=== PATIENT | female | born 1935 | race Caucasian/White ===

== ENCOUNTER 2018-08-14 09:15 | Outpatient (CLI) | payer MEDICARE, MEDICAID ==
[2018-08-10 13:11] LABS: HEMATOCRIT 43.2 % (36-48); HEMOGLOBIN 14.1 g/dL (12.0-16.0); MEAN CORPUSCULAR HEMOGLOBIN 31 pg (27-31); MEAN CORPUSCULAR HGB CONC 33 % (32-36); MEAN CORPUSCULAR VOLUME 94 fL (79.0-98.0); PLATELET COUNT (AUTO) 198 K/uL (130-430); RED CELL DISTRIBUTION WIDTH 12.8 % (9.0-15.0); WHITE BLOOD COUNT (AUTO) 6.2 K/uL (4.8-10.8)
[2018-08-10 13:21] LABS: BILIRUBIN,URINE NEGATIVE (NEGATIVE); CLARITY/URINE SL HAZY (CLEAR); COLOR,URINE YELLOW (YELLOW); GLUCOSE,URINE NEGATIVE (NEGATIVE); KETONES,URINE NEGATIVE (NEGATIVE); LEUKOCYTE ESTERASE ,URINE 3+ (NEGATIVE); NITRITE, URINE NEGATIVE (NEGATIVE); PH,URINE 6.5 (5.0-8.0); PROTEIN URINE NEGATIVE (NEGATIVE); UROBILINOGEN,URINE 0.2 (0.2-1.0)
[2018-08-10 13:24] LABS: BLOOD, URINE TRACE (NEGATIVE)
[2018-08-10 13:30] LABS: PROTHROMBIN TIME 10.6 SECS (9.5-12.5)
[2018-08-10 13:37] LABS: ALANINE AMINOTRANSFERASE 23 U/L (12-78); ALBUMIN 3.3 g/dL (3.4-4.8); ANION GAP 6 (5-15); ASPARTATE AMINOTRANSFERASE 17 U/L (10-37); CALCIUM 10.2 mg/dL (8.4-11.0); CHLORIDE 102 mmol/L (98-107); CREATININE 0.54 mg/dL (0.55-1.30); GLUCOSE 93 mg/dL (70-99); POTASSIUM 4.3 mmol/L (3.5-5.1); SODIUM SERUM 135 mmol/L (136-145); TOTAL BILIRUBIN 0.9 mg/dL (0.0-1.0); UREA NITROGEN, BLOOD 13 mg/dL (8-21)
[2018-08-10 13:53] LABS: BAND % (MANUAL) 2 % (0-6); LYMPHOCYTES % (MANUAL) 38 % (20-46); MONOCYTES % (MANUAL) 9 % (0-11)
[2018-08-10 13:54] LABS: BASOPHILS % (MANUAL) 0 % (0-2); EOSINOPHILS % (MANUAL) 2 % (0-7)
[2018-08-10 14:01] LABS: BACTERIA,URINE MANY /HPF (None Seen); MUCUS,URINE None Seen /LPF (None Seen); WBC,URINE 50-80 /HPF (0-3); YEAST,URINE None Seen /HPF (None Seen)
[~2018-08-14 09:15] MED LIST: DICL50TA9 PO; FEXO60TA PO; ISOS10TA2 PO; LOSA1TAB9 PO; PRO40 PO; SYN50 PO
== END 2018-08-14 20:01 | disposition home or self-care (01) ==
LOC: SLB 09:15 → EDSTATUS 09:30 → SLB 20:01
PROVIDERS: ATTEND Specialist
DX: Z01.818 Encounter for other preprocedural examination (principal); R05 Cough; N83.209 Unspecified ovarian cyst, unspecified side; I10 Essential (primary) hypertension; Z79.899 Other long term (current) drug therapy; E03.9 Hypothyroidism, unspecified
CPT/HCPCS: 36415; 71045; 80053; 81000-TC; 85007; 85027; 85610-TC; 85730-TC; 87086; 87186-TC; 93005

== ENCOUNTER 2018-12-27 18:01 | Inpatient (IN) | payer MEDICAID, MEDICARE ==
[~2018-12-27] VITALS: Ht 152.4 cm; Wt 96.8 kg
[2018-12-27 18:21] VITALS: BP_SYST 131
--- NOTE | 2018-12-27 18:28 | NUR ---
Patient triaged and placed in waiting room. patient appears in no acute distress at this time. Accompanied by daughter, awaiting available bed, and MD notified of need for MSE.
--- NOTE | 2018-12-27 19:35 | NUR ---
Pt BIB daughter C/O fever x 2 days with chills, bodyaches, nausea and vomiting. Pt was brought in today by the daughter after symptoms were not relieved by Tylenol. Pt's was febrile and has been given Tylenol other vitals are stable, will continue to monitor.
--- NOTE | 2018-12-27 19:39 | NUR ---
Placed in room 1 . Placed on knocker off, blood pressure machine and pulse oximeter. To gown for exam. Side rails up. Report given to FERNANDO GALVAN.
--- NOTE | 2018-12-27 19:40 | NUR ---
ER Dr. Chong at bedside examining patient.
[2018-12-27] MEDS ORDERED: ONDANSETRON HCL 4 MG/2 ML VIAL IVP ONE (20:15)
[2018-12-27] MEDS ORDERED: NACL 0.9% 1,000 ML IV ONE (20:15)
[2018-12-27 20:48] LABS: ANION GAP 5 (5-15); CALCIUM 9.6 mg/dL (8.4-11.0); CHLORIDE 90 mmol/L (98-107); CREATININE 0.98 mg/dL (0.55-1.30); GLUCOSE 123 mg/dL (70-99); POTASSIUM 4.6 mmol/L (3.5-5.1); SODIUM SERUM 121 mmol/L (136-145); UREA NITROGEN, BLOOD 25 mg/dL (8-21)
--- NOTE | 2018-12-27 20:48 | NUR ---
Temp 102.1. Last tylenol given at 1300. Dr. Chong notified. Orders to be received.
[2018-12-27 20:49] LABS: BILIRUBIN,URINE NEGATIVE (NEGATIVE); BLOOD, URINE 2+ (NEGATIVE); CLARITY/URINE CLOUDY (CLEAR); COLOR,URINE YELLOW (YELLOW); GLUCOSE,URINE NEGATIVE (NEGATIVE); KETONES,URINE NEGATIVE (NEGATIVE); LEUKOCYTE ESTERASE ,URINE 2+ (NEGATIVE); NITRITE, URINE NEGATIVE (NEGATIVE); PROTEIN URINE 1+ (NEGATIVE); UROBILINOGEN,URINE 0.2 (0.2-1.0)
[2018-12-27 20:52] LABS: ALANINE AMINOTRANSFERASE 36 U/L (12-78); ALBUMIN 3.4 g/dL (3.4-4.8); ASPARTATE AMINOTRANSFERASE 49 U/L (10-37); BACTERIA,URINE FEW /HPF (None Seen); RBC,URINE 20-50 /HPF (0-3); TOTAL BILIRUBIN 1.8 mg/dL (0.0-1.0); WBC,URINE >100 /HPF (0-3)
[2018-12-27 20:53] LABS: MUCUS,URINE 1+ /LPF (None Seen)
[2018-12-27 20:54] LABS: HEMATOCRIT 42.9 % (36-48); HEMOGLOBIN 14.6 g/dL (12.0-16.0); MEAN CORPUSCULAR HEMOGLOBIN 31 pg (27-31); MEAN CORPUSCULAR HGB CONC 34 % (32-36); MEAN CORPUSCULAR VOLUME 91 fL (79.0-98.0); PLATELET COUNT (AUTO) 178 K/uL (130-430); RED BLOOD CELL COUNT(AUTO) 4.73 MIL/uL (4.2-6.2); RED CELL DISTRIBUTION WIDTH 13.9 % (9.0-15.0); WHITE BLOOD COUNT (AUTO) 17.3 K/uL (4.8-10.8)
[2018-12-27 20:55] LABS: BASOPHILS % (AUTO) 0.1 % (0.0-2.0); LYMPHOCYTES # (AUTO) 1.2 K/uL (1.0-5.5); MONOCYTES # (AUTO) 1.3 K/uL (0.0-1.0); MONOCYTES % (AUTO) 7.3 % (1.7-9.3); NEUTROPHILS # (AUTO) 14.8 K/uL (1.8-7.7); NEUTROPHILS % (AUTO) 85.6 % (40.0-70.0)
[2018-12-27 20:57] LABS: INR 1.1 (0.8-1.2); PROTHROMBIN TIME 11.3 SECS (9.5-12.5)
[2018-12-27] MEDS ORDERED: LEVOFLOXACIN 500 MG/D5W 100 ML IV ONE ×2 (21:00→23:57)
[2018-12-27] MEDS ORDERED: ACETAMINOPHEN 500 MG TABLET PO ONE ×2 (21:00→21:45)
[2018-12-27] MEDS ORDERED: ACETAMINOPHEN 500 MG TABLET ONE ×2 (21:05→21:44)
[2018-12-27] MEDS ORDERED: ENOXAPARIN SODIUM 100 MG/ML SYRINGE SUBCUT ONE (21:15)
--- NOTE | 2018-12-27 21:22 | NUR ---
Patient transported to radiology via gurney, accompanied by rad staff.
--- NOTE | 2018-12-27 21:32 | NUR ---
Pt returned from radiology in stable condition
--- NOTE | 2018-12-27 21:53 | NUR ---
Pt is resting quietly in bed, no acute distress noted.
[2018-12-27] MEDS ORDERED: HYDR-3698 PO (22:13)
[2018-12-27] MEDS ORDERED: OMEP20CA10 PO (22:13)
[2018-12-27] MEDS ORDERED: NITR1PAT76 TD (22:13)
--- NOTE | 2018-12-27 22:14 | NUR ---
Medication reconciliation completed with information provided by family. Any prior medication reconciliation on file was reviewed and corrected.
[2018-12-27] MEDS ORDERED: ASPIRIN 81 MG TAB.CHEW PO ONE (22:15)
[2018-12-27] MEDS ORDERED: ASPIRIN 81 MG TAB.CHEW ONE (22:16)
--- NOTE | 2018-12-27 22:32 | NUR ---
Patient will be admitted to care of Dr. Jacobs. Admitted to telemetry unit. Will go to room 135. Belongings list completed. Summary report printed. Report will be given at bedside.
--- NOTE | 2018-12-27 22:45 | NUR ---
Transfer to [facility] via ACLS protocol. Licensed nurse present. IV present no signs or symptoms of infiltration.
--- NOTE | 2018-12-27 22:49 | NUR ---
ADMISSION: The patient, KETURAH FRANCES, 83 y/o, F admitted by JOIE WHITTAKER MD,with the diagnosis of NSTEMI AND HYPONATREMIA , TO ROOM 135 , WILL TRANSFER TO ROOM 107 A AFTER COLLECTING DATA FOR ADMISSION .
[2018-12-27 22:55] VITALS: BP_SYST 121
--- NOTE | 2018-12-27 23:25 | NUR ---
OPENING NOTE RECEIVED ENDORSEMENT REPORT FROM ADMISSION NURSE FIONA AT BEDSIDE. PT RESTING IN BED COMFORTABLY. PT IS AOX4. FAMILY AT BEDSIDE. NO SOB NOTED. NO DISTRESS NOTED. NO S/S OF PAIN NOTED. PT DENIES PAIN AT THIS TIME. IV CLEAN DRY AND INTACT. IV SALINE LOCKED. NO NEEDS AT THIS TIME. PT ORIENTED TO HOSPITAL ROOM. PT INSTRUCTED HOW TO USE CALL LIGHT AND ROOM PHONE. PT VERBALIZED UNDERSTANDING. SAFETY MEASURES IN PLACE. CALL LIGHT/ROOM PHONE WITHIN REACH, BED WHEELS LOCKED, BED IN LOWEST POSITION, BED RAILS UP X 2, BED ALARM ON. NO OTHER NEEDS AT THIS TIME. WILL CONTINUE TO MONITOR PT AND CONTINUE POC.
[2018-12-27 23:30] VITALS: BP_SYST 121
[2018-12-27] MEDS ORDERED: ONDANSETRON HCL 4 MG/2 ML VIAL IVP PRN (23:45)
[2018-12-27] MEDS ORDERED: LORazepam 2 MG/ML VIAL IVP PRN (23:45)
[2018-12-28] VITALS (18 sets, daily range): BP systolic 88–179
[2018-12-28] MEDS ORDERED: LEVOFLOXACIN 500 MG/D5W 100 ML IV ONE (00:30)
[2018-12-28] MEDS: NACL 0.9% 1,000 ML IV SCH ×3 (00:38→16:52)
[2018-12-28] MEDS: HYDROcodone/ACETAMIN 10-325 MG TAB PO PRN (00:46)
--- NOTE | 2018-12-28 00:54 | NUR ---
MED PASS PT RESTING IN BED WITH EYES CLOSED. NO SOB NOTED. NO DISTRESS NOTED. NO S/S OF PAIN NOTED. DTR AT BEDSIDE. PT EASILY AWAKEN. SCHEDULED FLUIDS AND ANTIBIOTICS ADMINISTERED AT ORDERED RATE. IVF INFUSING WELL. PT REPORTS 10/10 KNEE PAIN PRN NORCO 10 ADMINISTERED ORDERED FOR SEVERE PAIN. PT TOLERATED WELL. NO OTHER NEEDS AT THIS TIME. SAFETY MEASURES IN PLACE. WILL CONTINUE TO MONITOR PT AND CONTINUE POC.
--- NOTE | 2018-12-28 02:34 | NUR ---
RN ROUNDS PT RESTING IN BED WITH EYES CLOSED. NO SOB NOTED. NO DISTRESS NOTED. NO S/S OF PAIN NOTED. NO NEEDS AT THIS TIME. SAFETY MEASURES IN PLACE. WILL CONTINUE TO MONITOR PT AND CONTINUE POC.
--- NOTE | 2018-12-28 04:55 | NUR ---
Consultation Paged Reason for consultation: Hyponatremia Was consult called: Y Person who was notified: Shelby Consulting Physician: Judie Gan (Dr. Mancini is correctional facility nurse) Nude Model Ordering Physician: Guillermo Rdz
--- NOTE | 2018-12-28 04:57 | NUR ---
Consultation Paged Reason for consultation: UTI Was consult called: Y Person who was notified: Shelby Consulting Physician: Dr. Rey (Dr. Quick is contracting engineer) Auditor Appraiser Ordering Physician: Guillermo Rdz
[2018-12-28] MEDS: LEVOTHYROXINE SODIUM 0.05 MG TABLET PO SCH (06:34)
--- NOTE | 2018-12-28 06:52 | NUR ---
CLOSING NOTE PT RESTING IN BED COMFORTABLY. PT IS AOX3. DTR AT BEDSIDE. NO SOB NOTED. NO DISTRESS NOTED. NO S/S OF PAIN NOTED. NO COMPLAINTS OF PAIN AT THIS TIME. PAIN MANAGED THROUGHOUT SHIFT. ALL SCHEDULED MEDICATIONS ADMINISTERED ORDERED. ALL NEEDS MET THROUGHOUT SHIFT. SAFETY MEASURES IN PLACE THROUGHOUT SHIFT. NO NEEDS AT THIS TIME. WILL CONTINUE TO MONITOR PT AND CONTINUE POC. WILL ENDORSE PT CARE TO DAY SHIFT NURSE RUDY AT BEDSIDE.
[2018-12-28 07:12] LABS: ANION GAP 7 (5-15); CALCIUM 8.6 mg/dL (8.4-11.0); CHLORIDE 94 mmol/L (98-107); CREATININE 0.94 mg/dL (0.55-1.30); GLUCOSE 98 mg/dL (70-99); POTASSIUM 4.6 mmol/L (3.5-5.1); SODIUM SERUM 125 mmol/L (136-145); UREA NITROGEN, BLOOD 20 mg/dL (8-21)
[2018-12-28 07:23] LABS: ALANINE AMINOTRANSFERASE 31 U/L (12-78); ALBUMIN 2.5 g/dL (3.4-4.8); ASPARTATE AMINOTRANSFERASE 38 U/L (10-37); TOTAL BILIRUBIN 1.4 mg/dL (0.0-1.0)
--- NOTE | 2018-12-28 07:27 | NUR ---
OPENING NOTE: MORNING REPORT WAS TAKEN FROM BENCH MOLDER NURSE AT BEDSIDE. DAUGHTER AT BEDSIDE. PATIENT LAYING IN BED WITH NO SIGNS OF DISTRESS. PATIENT ON ROOM AIR. IV FLUIDS INFUSING. BED ALARM IS ON AND CALL LIGHT IS IN REACH. BED IN LOWEST POSITION WITH SIDE RAILS UP. WILL CONTINUE TO MONITOR.
[2018-12-28 07:44] LABS: HEMATOCRIT 39.4 % (36-48); HEMOGLOBIN 13.4 g/dL (12.0-16.0); MEAN CORPUSCULAR VOLUME 91 fL (79.0-98.0); RED BLOOD CELL COUNT(AUTO) 4.32 MIL/uL (4.2-6.2); WHITE BLOOD COUNT (AUTO) 13.2 K/uL (4.8-10.8)
[2018-12-28 07:45] LABS: BASOPHILS % (AUTO) 0.3 % (0.0-2.0); EOSINOPHILS % (AUTO) 0.1 % (0.0-4.0); LYMPHOCYTES # (AUTO) 0.9 K/uL (1.0-5.5); LYMPHOCYTES % (AUTO) 6.6 % (20.5-51.5); MEAN CORPUSCULAR HEMOGLOBIN 31 pg (27-31); MEAN CORPUSCULAR HGB CONC 34 % (32-36); MONOCYTES # (AUTO) 0.8 K/uL (0.0-1.0); MONOCYTES % (AUTO) 5.7 % (1.7-9.3); NEUTROPHILS # (AUTO) 11.5 K/uL (1.8-7.7); NEUTROPHILS % (AUTO) 87.3 % (40.0-70.0); PLATELET COUNT (AUTO) 152 K/uL (130-430); RED CELL DISTRIBUTION WIDTH 13.3 % (9.0-15.0)
--- NOTE | 2018-12-28 07:50 | NUR ---
PATIENT LAYING IN BED. DAUGHTER AT BEDSIDE. PATIENT LOOKS LIKE SHE IS HAVING ABNORMAL BREATHING. WHEN ASKED IF SHE IS IN PAIN OR HAS SHORTNESS OF BREATH. PATIENT STATES NO. BREATH SOUNDS CLEAR. VITALS WERE TAKEN. BP LOW. WHEN TAKEN AGAIN WENT DOWN TO 90/31. WILL LET DR WHITTAKER KNOW.
--- NOTE | 2018-12-28 08:05 | NUR ---
MD: LET DR KNOW PATIENT'S VITALS AND LABS AND THAT PATIENT SEVERE SEPSIS RISK. SAID TO TRANSFER PATIENT TO ICU AND LET Megan WHITTAKER KNOW ABOUT TROPONIN.
--- NOTE | 2018-12-28 08:17 | NUR ---
SINGLE FOLD MACHINE OPERATOR, DR Aj WHITTAKER WAS CALLED RE: NOTIFY TRANSFER OF PATIENT TO ICU PER DR David WHITTAKER. SPOKE TO MORGAN.
--- NOTE | 2018-12-28 08:25 | NUR ---
PATIENT TO BE TRANSFERRED TO ICU. CHARGE NURSE WANTS TO WAIT UNTIL Aj WHITTAKER CALLS BACK TO SEE IF HE WANTS PATIENT TO BE TRANSFERRED TO ICU.
--- NOTE | 2018-12-28 08:55 | NUR ---
PATIENT GETTING ECHO AT BEDSIDE. PATIENT WILL BE TRANSFERRED TO ICU AFTER ECHO.
[2018-12-28] MEDS: LOSARTAN POTASSIUM 50 MG TABLET (COZAAR) PO SCH ×2 (09:00→12:11)
[2018-12-28] MEDS: NITROGLYCERIN 0.4 MG/HR PATCH.TD24 TD SCH (09:00)
[2018-12-28] MEDS ORDERED: HCTZ PO ONE (09:00)
[2018-12-28] MEDS ORDERED: LOSARTAN PO ONE (09:00)
[2018-12-28] MEDS: DICLOFENAC SODIUM 25 MG TABLET.DR PO SCH (09:00)
[2018-12-28] MEDS: HYDROCHLOROTHIAZIDE 12.5 MG CAPSULE (HCTZ) PO SCH ×2 (09:00→12:10)
[2018-12-28] MEDS: ISOSORBIDE DINITRATE 10 MG TABLET (ISORDIL) PO SCH ×2 (09:00→12:33)
[2018-12-28] MEDS: OMEPRAZOLE 20 MG CAPSULE.DR (PriLOSEC) PO SCH (09:00)
--- NOTE | 2018-12-28 09:30 | NUR ---
PATIENT TRANSFERRED TO ICU. REPORT WAS GIVEN AT BEDSIDE. Addendum: 12/28/18 at 0956 by Breann Mijares RN ALL BELONGINGS SENT WITH PATIENT, INCLUDING WHEELCHAIR.
--- NOTE | 2018-12-28 09:35 | NUR ---
Received pt from [facility] to ICU bed 8 with RN and ACLS protocol. SR on arrival. VSS. HOB up. Pts temp 100. Family at bedside. IV to left AC with NS infusing at 100 cc/hr. Room air 02 sat 96%. Lungs diminished bilaterally. C/O pain to right knee from prior arthroscopy. Pt is lao speaking. Skin warm and dry. Pt shivering and states she is cold. Will continue to monitor.
--- NOTE | 2018-12-28 09:35 | NUR ---
Received pt to ICU bed 8 from [facility] with RN at bedside. Pt alert,oriented and northern irish speaking. Pt denies pain and SOB. SR on monitor. Lungs diminished bilaterally. Room air 02 sats 95%. No edema noted. IV to left AC infusing at 100cc/hr on pump. Mild ankle swelling noted. Will continue to monitor.
--- NOTE | 2018-12-28 09:45 | NUR ---
Nutrition Update Ever Scale 15 noted. Pt admitted for NSTEMI and hyponatremia. Diet: cardiac BMI: 41 kg/m2 RD to follow per nutrition care standards.
--- NOTE | 2018-12-28 11:20 | NUR ---
ICU NURSE CALLED TO ASK TO PUT NON ADMINISTERED FOR MORNING MEDICATIONS. DID NOT HAVE TIME TO GIVE PATIENT MORNING MEDICATIONS PRIOR TO TRANSFER. ALSO SOME MEDICATIONS HELD BECAUSE OF DECREASED BLOOD PRESSURE.
[2018-12-28] MEDS: ACETAMINOPHEN 325 MG TABLET PO PRN ×2 (11:43→18:05)
--- NOTE | 2018-12-28 11:50 | NUR ---
Call out to Dr. Megan Jacobs regarding sepsis fluid replacement per Dr. Quick.
[2018-12-28] MEDS: PIPERACILLIN/TAZO 4.5GM/DEX-IS 100 ML IV SCH ×2 (12:15→21:07)
[2018-12-28] MEDS ORDERED: OMEPRAZOLE 20 MG CAPSULE.DR (PriLOSEC) PO ONE (13:30)
--- NOTE | 2018-12-28 13:32 | NUR ---
Second call out to Dr. Aj Jacobs for sepsis fluid management per Dr. Quick. SHe does not want to manage fluids due to heart problem.
[2018-12-28] MEDS ORDERED: NACL 0.9% 1,000 ML IV ONE (14:00)
--- NOTE | 2018-12-28 14:00 | NUR ---
Family requesting for pt to have 02 at 4L NC for sats 94%. 02 2L NC applied. Sats between 93-97% without 02. Will continue to monitor.
--- NOTE | 2018-12-28 14:30 | NUR ---
Dr. David Jacobs in to see pt. Orders left.
--- NOTE | 2018-12-28 14:45 | NUR ---
NS fluid challenge started on the pump. Pt has a left AC IV and pt bends her arm frequently making it hard for IV to infuse at times.
--- NOTE | 2018-12-28 16:01 | NUR ---
Call out to Dr. jA Jacobs regarding blood pressure. 89/38 NS bolus being given. Pt keeps bending her arm and IV site is left AC. Family at bedside.
--- NOTE | 2018-12-28 16:10 | NUR ---
Received return call from Dr. Jacobs regarding BP. Orders left for levophed if needed to keep MAP greater than 60.
[2018-12-28] MEDS ORDERED: NOREPINEPHRINE BITARTRATE 4 MG in D5W 246 ML IV PRN (16:15)
--- NOTE | 2018-12-28 16:40 | NUR ---
Consult called for Dr. Olsen. Spoke with her on the phone and questions answered. She will be in later.
--- NOTE | 2018-12-28 16:55 | NUR ---
Dietitian Recommendations *Recommend continuing Cardiac diet as appropriate. LP, RD Please refer to Nutrition Assessment for details.
--- NOTE | 2018-12-28 17:30 | NUR ---
Dr. Olsen in to see the pt. Orders left. She said to decrease the pts IVF because she doesn't want the pt to get too much fluid. IVF decreased to 100 cc/hr.
[2018-12-28] MEDS ORDERED: K PHOS 15 MM in NS 250 ML IV ONE (18:15)
--- NOTE | 2018-12-28 18:30 | NUR ---
Dr. Montana in to see pt. Orders left. If after albumin and lasix, pts urine output over the next 3 hours remains less than 100cc please start dopamine at 2mcgs.
--- NOTE | 2018-12-28 19:25 | NUR ---
Report given to Lynnette to assume care.
[2018-12-28] MEDS ORDERED: ALBUMIN HUMAN 25% 100 ML IV ONE (19:30)
[2018-12-28] MEDS ORDERED: DOPamine PREMIX 250 ML IV PRN (19:30)
--- NOTE | 2018-12-28 19:30 | NUR ---
PM ASSESSMENT REPORT RECEIVED FROM GRAY GALVAN. PT RECEIVED IN BED WITH EYES OPEN, AAOX4, AND PRIMARILY MALTESE SPEAKING. VSS, NO S/S OF ACUTE DISTRESS NOTED. PT ON 2L NC. SR ON MONITOR. LAC 20G INFUSING NS @ 100 CC/HR. MCARTHUR CATH IN PLACE DRAINING YELLOW URINE TO GRAVITY. SCDs IN PLACE. HOB ELEVATED, BED IN LOWEST POSITION, CALL LIGHT IN REACH. WILL CONTINUE TO MONITOR PT. Addendum: 12/29/18 at 0007 by Lynnette Darden RN FAMILY IS AT BEDSIDE
--- NOTE | 2018-12-28 20:00 | NUR ---
IV PLACEMENT: # 20 gauge angiocath placed to L HAND. Use of asceptic technique. Opsite placed over site. Blood return noted. Flushed with 10 cc of normal saline. No evidence of infiltration noted. Patient tolerated WELL.
[2018-12-28] MEDS ORDERED: LEVOFLOXACIN 250 MG/D5W 50 ML IV SCH (21:00)
[2018-12-28] MEDS ORDERED: FUROSEMIDE 40 MG/4 ML VIAL IVP SCH (21:00)
--- NOTE | 2018-12-28 21:00 | NUR ---
DR. KENDRA RUBI MADE AWARE THAT POTASSIUM PHOSPHATE THAT WAS ORDERED IS NOT AVAILABLE, PHOSPHORUS LEVEL 2.0. PER OKAY TO WAIT UNTIL THE MORNING FOR PHARMACY TO ARRIVE TO ADMINISTER MEDICATION.
--- NOTE | 2018-12-28 21:30 | NUR ---
PAYROLL TAX SPECIALIST PT GIVEN 100 CC 25% ALBUMIN AND LASIX PER ORDERS. WILL CONTINUE TO MONITOR URINE OUTPUT AND RECHECK FOR URINE > 100 CC IN 3 HOURS.
[2018-12-28] MEDS ORDERED: COMMUNICATION ORDER XX ONE (22:15)
[2018-12-29] VITALS (20 sets, daily range): BP systolic 103–182
[2018-12-29] MEDS: ACETAMINOPHEN 325 MG TABLET PO PRN (02:50)
--- NOTE | 2018-12-29 02:50 | NUR ---
RN ROUNDS PT TEMPERATURE 100.8 AT THIS TIME. PT GIVEN TYLENOL PER ORDERS AND COOLING MEASURES PROVIDED.
[2018-12-29] MEDS: NACL 0.9% 1,000 ML IV SCH ×3 (03:44→21:10)
--- NOTE | 2018-12-29 04:00 | NUR ---
RN ROUNDS PT RESTING COMFORTABLY IN BED. FAMILY REMAINS AT BEDSIDE. PER FAMILY THEY WOULD LIKE TO HOLD CHG BATH FOR LATER IN THE MORNING. VSS, NO S/S OF ACUTE DISTRESS NOTED. BREATHING IS EVEN AND UNLABORED. WILL CONTINUE TO MONITOR PT.
[2018-12-29] MEDS: PIPERACILLIN/TAZO 4.5GM/DEX-IS 100 ML IV SCH ×3 (05:59→21:09)
[2018-12-29] MEDS: LEVOTHYROXINE SODIUM 0.05 MG TABLET PO SCH (06:02)
[2018-12-29] MEDS: OMEPRAZOLE 20 MG CAPSULE.DR (PriLOSEC) PO SCH (06:02)
[2018-12-29 07:03] LABS: HEMOGLOBIN 11.6 g/dL (12.0-16.0); MEAN CORPUSCULAR HEMOGLOBIN 32 pg (27-31); MEAN CORPUSCULAR HGB CONC 34 % (32-36); MEAN CORPUSCULAR VOLUME 92 fL (79.0-98.0); PLATELET COUNT (AUTO) 138 K/uL (130-430); RED BLOOD CELL COUNT(AUTO) 3.69 MIL/uL (4.2-6.2); RED CELL DISTRIBUTION WIDTH 13.5 % (9.0-15.0); WHITE BLOOD COUNT (AUTO) 8.5 K/uL (4.8-10.8)
[2018-12-29 07:04] LABS: BASOPHILS % (AUTO) 0.2 % (0.0-2.0); EOSINOPHILS % (AUTO) 0.1 % (0.0-4.0); LYMPHOCYTES % (AUTO) 9.3 % (20.5-51.5); MONOCYTES % (AUTO) 7.8 % (1.7-9.3); NEUTROPHILS # (AUTO) 7.1 K/uL (1.8-7.7); NEUTROPHILS % (AUTO) 82.6 % (40.0-70.0)
[2018-12-29 07:05] LABS: LYMPHOCYTES # (AUTO) 0.8 K/uL (1.0-5.5); MONOCYTES # (AUTO) 0.7 K/uL (0.0-1.0)
--- NOTE | 2018-12-29 07:06 | NUR ---
ENDORSEMENT BEDSIDE REPORT GIVEN TO MANDA GALVAN USING SBAR APPROACH.
[2018-12-29 07:07] LABS: ALANINE AMINOTRANSFERASE 23 U/L (12-78); ALBUMIN 2.3 g/dL (3.4-4.8); ANION GAP 7 (5-15); ASPARTATE AMINOTRANSFERASE 31 U/L (10-37); CALCIUM 8.2 mg/dL (8.4-11.0); CHLORIDE 93 mmol/L (98-107); CREATININE 0.88 mg/dL (0.55-1.30); GLUCOSE 134 mg/dL (70-99); POTASSIUM 3.6 mmol/L (3.5-5.1); SODIUM SERUM 121 mmol/L (136-145); TOTAL BILIRUBIN 0.7 mg/dL (0.0-1.0); UREA NITROGEN, BLOOD 16 mg/dL (8-21)
--- NOTE | 2018-12-29 08:00 | NUR ---
AAOX4, SPEAKS ESTONIAN. VSS, NO S/S OF ACUTE DISTRESS NOTED. ON 2L NC. SR ON MONITOR. LAC 20G , WITH NS INFUSING @ 100 CC/HR. MCARTHUR CATH IN PLACE DRAINING YELLOW URINE TO GRAVITY. SCDs IN PLACE. HOB ELEVATED. CALL LIGHT IN PLACE, BED LOCKED IN LOWEST POSITION. DAUGHTER AT BEDSIDE. WILL CONTINUE TO MONITOR.
[2018-12-29] MEDS: DICLOFENAC SODIUM 25 MG TABLET.DR PO SCH (08:16)
[2018-12-29 08:25] LABS: ERYTHROCYTE SEDIMENTATION RATE 44 MM/HR (0-20)
--- NOTE | 2018-12-29 10:07 | NUR ---
DR. GARDNER IS CALLED FOR CLARIFICATION OF ORDERS. HE ALSO STATES VOLTAREN MAY BE CONTINUED FOR THE TIME BEING.
--- NOTE | 2018-12-29 10:35 | NUR ---
Dr. Vidales called in. Situation is relayed to him, and he gave orders. will be carried out.
[2018-12-29] MEDS ORDERED: ENOXAPARIN SODIUM 60 MG/0.6 ML SYRINGE SUBCUT ONE (10:45)
[2018-12-29] MEDS ORDERED: ASPIRIN 81 MG TABLET(ECOTRIN) PO ONE (10:45)
[2018-12-29] MEDS ORDERED: CARVEDILOL 3.125 MG TABLET (COREG) PO ONE (10:45)
[2018-12-29] MEDS: ISOSORBIDE DINITRATE 10 MG TABLET (ISORDIL) PO SCH (12:13)
[2018-12-29] MEDS: NITROGLYCERIN 0.4 MG/HR PATCH.TD24 TD SCH (12:18)
--- NOTE | 2018-12-29 13:00 | NUR ---
Patient is resting at this time.
--- NOTE | 2018-12-29 14:13 | NUR ---
Patient is resting, no signs of distress noted.
--- NOTE | 2018-12-29 16:05 | NUR ---
Patient is assessed by Dr. Vidales and Dr. Jacobs. Patient can be transferred per both Dr.s . Will be carried out.
--- NOTE | 2018-12-29 17:40 | NUR ---
Patient is transferred. Care is delegated to Ni Escamilla RN.
--- NOTE | 2018-12-29 18:00 | NUR ---
Notes- received pt from ICU, Pt is awake, alert. speak Pashto . family at bedside. turned and repositioned. complain of generalized pain. On o2 2l, tolerated well. on 24 hour urine collection. pt has mercedes catheter. safety precaution observed. no distress noted. will monitor.
[2018-12-29] MEDS: HYDROcodone/ACETAMIN 5-325 MG TAB (NORCO/ VICODIN) PO PRN (18:17)
[2018-12-29] MEDS ORDERED: BISACODYL 5 MG TABLET.DR (DULCOLAX) PO ONE (18:30)
--- NOTE | 2018-12-29 18:52 | NUR ---
Notes- Resting in bed, family bedside. no acute distress noted. willl endorse
--- NOTE | 2018-12-29 19:30 | NUR ---
OPENING NOTE RECEIVED CARE OF PT. PT RESTING IN BED WITH FAMILY AT BEDSIDE. PT AAOX4, NO S/S OF ACUTE DISTRESS, BREATHING IS UNLABORED TO ROOM AIR. IVF ARE INFUSING AT ORDERED RATE, NO SIGN OF INFILTRATION AT IV SITE. PT ENCOURAGED TO CALL FOR ASSISTANCE. SAFETY PRECAUTIONS IN PLACE: BED LOCKED IN LOWEST POSITION, SIDE RAILS UPX3, CALL LIGHT WITH PT, BED ALARM ON, CLOSE TO NURSES STATION. WILL MONITOR. Addendum: 12/29/18 at 2346 by Emily Jackson RN AMEND: BREATHING IS UNLABORED TO OXYGEN AT 2 L VIA NASAL CANNULA
[2018-12-29] MEDS: ENOXAPARIN SODIUM 60 MG/0.6 ML SYRINGE SUBCUT SCH (20:32)
--- NOTE | 2018-12-29 20:32 | NUR ---
SCHEDULED LOVENOX PT GIVEN SCHEDULED LOVENOX. MEDICATION AND POTENTIAL SIDE EFFECTS EXPLAINED. PT VERBALIZED UNDERSTANDING. PT RESTING IN BED WITH FAMILY AT BEDSIDE, NO S/S OF ACUTE DISTRESS AT THIS TIME. PT ENCOURAGED TO CALL FOR ASSISTANCE. SAFETY MAINTAINED. WILL MONITOR.
--- NOTE | 2018-12-29 21:09 | NUR ---
SCHEDULED ZOSYN PT GIVEN SCHEDULED ZOSYN. MEDICATIONS AND POTENTIAL SIDE EFFECTS EXPLAINED. PT VERBALIZED UNDERSTANDING. SAFETY MAINTAINED. WILL MONITOR.
--- NOTE | 2018-12-29 23:05 | NUR ---
REPOSITIONED PT REPOSITIONED FOR COMFORT PER REQUEST. IVF ARE INFUSING ORDERED, NO INFILTRATION AT IV SITE. NO S/S OF ACUTE DISTRESS NOTED. BREATHING IS UNLABORED TO O2 AT 2L VIA NC. SAFETY MAINTAINED. WILL MONITOR.
--- NOTE | 2018-12-30 01:30 | NUR ---
BEDPAN PT ASSISTED TO USE BEDPAN, WAS UNABLE TO HAVE A BOWEL MOVEMENT. EDUCATED PT REGARDING SCHEDULED DULCOLAX IN THE MORNING. PT VERBALIZED UNDERSTANDING. PT REPOSITIONED IN BED FOR COMFORT. PT ENCOURAGED TO CALL FOR ASSISTANCE. SAFETY MAINTAINED. WILL MONITOR.
[2018-12-30 02:28] VITALS: BP_SYST 127
--- NOTE | 2018-12-30 03:07 | NUR ---
SLEEPING PT SLEEPING IN BED WITH FAMILY AT BEDSIDE, PT APPEARS COMFORTABLE, WITH NO S/S OF ACUTE DISTRESS. VISIBLE RISE AND FALL OF CHEST TO OXYGEN AT 2 L VIA NASAL CANNULA. BREATHING IS UNLABORED. IVF ARE INFUSING AT ORDERED RATE. SAFETY PRECAUTIONS IN PLACE: BED LOCKED IN LOWEST POSITION, CALL LIGHT WITH PT, SIDE RAILS UP X3, BED ALARM ON, CLOSE TO NURSES STATION, PERSONAL ITEMS WITHIN REACH. WILL MONITOR.
[2018-12-30] MEDS: PIPERACILLIN/TAZO 4.5GM/DEX-IS 100 ML IV SCH ×3 (05:00→21:15)
--- NOTE | 2018-12-30 05:05 | NUR ---
SCHEDULED ZOSYN SCHEDULED ZOSYN ADMINISTERED TO PT. MEDICATIONS AND POTENTIAL SIDE EFFECTS EXPLAINED. PT VERBALIZED UNDERSTANDING. PT RESTING COMFORTABLY IN BED WITH FAMILY AT BEDSIDE, BREATHING IS UNLABORED TO O2 AT 2L VIA NC. MCARTHUR CATHETER IS INTACT AND DRAINING TO GRAVITY. SAFETY MAINTAINED. WILL MONITOR.
--- NOTE | 2018-12-30 06:00 | NUR ---
SCHEDULED MED PASS MEDICATIONS AND POTENTIAL SIDE EFFECTS EXPLAINED. PT VERBALIZED UNDERSTANDING. SAFETY MAINTAINED. WILL MONITOR.
[2018-12-30] MEDS: OMEPRAZOLE 20 MG CAPSULE.DR (PriLOSEC) PO SCH (06:01)
[2018-12-30] MEDS: LEVOTHYROXINE SODIUM 0.05 MG TABLET PO SCH (06:01)
[2018-12-30] MEDS: NACL 0.9% 1,000 ML IV SCH (06:01)
[2018-12-30 07:20] LABS: ANION GAP 6 (5-15); CHLORIDE 97 mmol/L (98-107); CHOLESTEROL 97 mg/dL (<200); CREATININE 0.75 mg/dL (0.55-1.30); GLUCOSE 110 mg/dL (70-99); HDL CHOLESTEROL 23 mg/dL (>55); LDL CHOLESTEROL 47 mg/dL (<100); PHOSPHORUS 2.2 mg/dL (2.7-4.5); POTASSIUM 3.6 mmol/L (3.5-5.1); SODIUM SERUM 125 mmol/L (136-145); TRIGLYCERIDES 92 mg/dL (30-150); UREA NITROGEN, BLOOD 13 mg/dL (8-21)
[2018-12-30 07:45] LABS: HEMATOCRIT 34.2 % (36-48); HEMOGLOBIN 11.6 g/dL (12.0-16.0); MEAN CORPUSCULAR HEMOGLOBIN 31 pg (27-31); MEAN CORPUSCULAR HGB CONC 34 % (32-36); MEAN CORPUSCULAR VOLUME 91 fL (79.0-98.0); PLATELET COUNT (AUTO) 136 K/uL (130-430); RED BLOOD CELL COUNT(AUTO) 3.75 MIL/uL (4.2-6.2); RED CELL DISTRIBUTION WIDTH 13.8 % (9.0-15.0); WHITE BLOOD COUNT (AUTO) 6.3 K/uL (4.8-10.8)
[2018-12-30 07:46] LABS: BASOPHILS % (AUTO) 0.3 % (0.0-2.0); EOSINOPHILS # (AUTO) 0.1 K/uL (0.0-0.4); EOSINOPHILS % (AUTO) 2.2 % (0.0-4.0); LYMPHOCYTES # (AUTO) 0.8 K/uL (1.0-5.5); LYMPHOCYTES % (AUTO) 12.9 % (20.5-51.5); MONOCYTES # (AUTO) 0.7 K/uL (0.0-1.0); MONOCYTES % (AUTO) 10.3 % (1.7-9.3); NEUTROPHILS # (AUTO) 4.7 K/uL (1.8-7.7); NEUTROPHILS % (AUTO) 74.3 % (40.0-70.0)
[2018-12-30 08:16] LABS: C-REACTIVE PROTEIN QUANT 12.6 mg/dL (0-0.5)
[2018-12-30] MEDS: DICLOFENAC SODIUM 25 MG TABLET.DR PO SCH (08:30)
--- NOTE | 2018-12-30 08:30 | NUR ---
SCHEDULED MED PASS PT RESTING WITH FAMILY AT BEDSIDE. SCHEDULED MEDICATIONS ADMINISTERED. MEDICATIONS EXPLAINED TO PT. PT VERBALIZED UNDERSTANDING. SAFETY MAINTAINED. WILL MONITOR.
[2018-12-30] MEDS: CARVEDILOL 3.125 MG TABLET (COREG) PO SCH (08:31)
[2018-12-30] MEDS: BISACODYL 5 MG TABLET.DR (DULCOLAX) PO SCH (08:31)
[2018-12-30] MEDS: ASPIRIN 81 MG TABLET(ECOTRIN) PO SCH (08:31)
[2018-12-30] MEDS: ENOXAPARIN SODIUM 60 MG/0.6 ML SYRINGE SUBCUT SCH ×2 (08:40→21:19)
[2018-12-30] MEDS: NITROGLYCERIN 0.4 MG/HR PATCH.TD24 TD SCH (08:41)
[2018-12-30 09:10] LABS: ERYTHROCYTE SEDIMENTATION RATE 53 MM/HR (0-20)
--- NOTE | 2018-12-30 10:30 | NUR ---
RN ROUNDS PT RESTING IN BED WITH FAMILY AT BEDSIDE. NO S/S OF DISTRESS. IVF INFUSING ORDERED. NO SIGN OF INFILTRATION. PT ENCOURAGED TO CALL FOR ASSISTANCE. SAFETY MAINTAINED. WILL MONITOR.
[2018-12-30 11:34] VITALS: BP_SYST 145
--- NOTE | 2018-12-30 11:55 | NUR ---
CLOSING NOTE PT RESTING IN BED WITH FAMILY AT BEDSIDE. BREATHING IS UNLABORED TO O2 AT 2L VIA NC. IVF INFUSING ORDERED. MCARTHUR CATHETER IS INTACT AND DRAINING TO GRAVITY. SAFETY MAINTAINED. ALL NEEDS MET DURING SHIFT. WILL ENDORSE CARE TO DAY SHIFT RN.
[2018-12-30] MEDS ORDERED: FUROSEMIDE 20 MG/2 ML VIAL IVP ONE (12:06)
--- NOTE | 2018-12-30 12:15 | NUR ---
Report received from Emily GALVAN, patient resting in bed, a/ox3-4, family is at bedside at this time, assessment complete, IV line is patent and infusing well, no s/s of infiltration, patient is on 2L Nasal Cannula, Arndt Catheter in place draining to gravity, educated patient and family on plan of care and call light system and to call for any assistance, they verbalized understanding, bed in lowest position, three side rails up, call light within reach, fall and aspiration precautions in place.
[2018-12-30] MEDS ORDERED: NA PHOS 15 MM in NS 250 ML IV ONE (12:30)
--- NOTE | 2018-12-30 12:50 | NUR ---
Medications patient resting in bed, awake, denies pain, educated patient and daughter on medication uses and potential side effects, they verbalized understanding, IV line is patent and infusing well, no other needs at this time, bed in lowest position, three side rails up, bed alarm on, call light within reach, fall and aspiration precautions in place.
[2018-12-30] MEDS: IPRATROPIUM/ALBUTEROL SULFATE 3 ML AMPUL.NEB (DUONEB) INH SCH ×2 (15:27→19:43)
--- NOTE | 2018-12-30 15:40 | NUR ---
Antibiotic late secondary to patient care, patient in stable condition, continuing to monitor.
[2018-12-30 15:41] VITALS: BP_SYST 127
--- NOTE | 2018-12-30 17:20 | NUR ---
RN rounds patient resting in bed, eyes closed, breathing is even and unlabored, no signs of distress, continuing to monitor, family at bedside, bed in lowest position, three side rails up, bed alarm on, bed close to nursing station, call light within reach.
--- NOTE | 2018-12-30 18:28 | NUR ---
Closing note patient resting in bed, eyes closed, breathing is even and unlabored, no signs of distress, all needs met, will endorse report to NOC shift nurse, patient family is at bedside, bed in lowest position, three side rails up, call light within reach, fall and aspiration precautions in place.
--- NOTE | 2018-12-30 19:10 | NUR ---
OPENING NOTES Bedside report received from dayshift nurse. Patient received lying in bed, HOB raised, nasal canula attached properly, on 2L of oxygen. No s/s of acute distress noted. Breathing even and unlabored. IVF infusing well, IV site shows no signs of infiltration or infection noted. Arndt attached, secured, and draining by gravity. Call light with patient. Bed alarm on. Bed is locked and at lowest position. Will continue to monitor.
[2018-12-30 20:00] VITALS: BP_SYST 136
--- NOTE | 2018-12-30 21:00 | NUR ---
ROUNDS/WEEN OFF NASAL CANULA Patient in bed, no signs of discomfort noted. Chest rise and fall even bilaterally. Nasal canula removed at this time. Patient tolerating well, SPO2 at 96 room air. Will continue to monitor. All needs met
[2018-12-30 22:53] LABS: URINE SODIUM, RANDOM 23 mmol/L (40-220)
--- NOTE | 2018-12-30 23:00 | NUR ---
ROUNDS Patient in bed sleeping at this time. No s/s of acute distress noted. Breathing even and unlabored. IVF infusing well. Arndt attached, secured, and draining by gravity. Call light with patient. Bed alarm on. Family members present at bedside. Will continue to monitor.
[2018-12-30 23:46] VITALS: BP_SYST 129
--- NOTE | 2018-12-31 01:00 | NUR ---
ROUNDS Patient in bed sleeping at this time. No signs of discomfort noted. Chest rise and fall even bilaterally. Call light with patient. IVF infusing well. Bed alarm on. Will continue to monitor.
--- NOTE | 2018-12-31 03:00 | NUR ---
PAIN Patient complained of pain at this time. Byron administered per PRN order. Will continue to monitor and reassess.
[2018-12-31] MEDS: HYDROcodone/ACETAMIN 5-325 MG TAB (NORCO/ VICODIN) PO PRN (03:10)
--- NOTE | 2018-12-31 05:00 | NUR ---
ROUNDS Patient in bed sleeping at this time. No signs of discomfort noted. Chest rise and fall even bilaterally. IVF infusing well. HOB raised, nasal canula attached properly, on 2L of oxygen. Call light with patient. Bed alarm on. Will continue to monitor.
[2018-12-31] MEDS: LEVOTHYROXINE SODIUM 0.05 MG TABLET PO SCH (06:01)
[2018-12-31] MEDS: OMEPRAZOLE 20 MG CAPSULE.DR (PriLOSEC) PO SCH (06:01)
[2018-12-31] MEDS: PIPERACILLIN/TAZO 4.5GM/DEX-IS 100 ML IV SCH (06:02)
--- NOTE | 2018-12-31 06:56 | NUR ---
CLOSING NOTES Patient in bed sleeping at this time. No s/s of acute distress noted. Breathing even and unlabored. Nasal canula attached properly, on 2L of oxygen, HOB raised. IVF infusing well, IV sites patent, no signs of infiltration or infection noted. Arndt attached, secured and draining by gravity. SCDs attached and operating. All needs met throughout shift. Fall and safety precautions maintained throughout shift. Will continue to monitor until patient care is endorsed to oncoming dayshift nurse.
[2018-12-31] MEDS: IPRATROPIUM/ALBUTEROL SULFATE 3 ML AMPUL.NEB (DUONEB) INH SCH ×3 (07:00→15:01)
--- NOTE | 2018-12-31 07:25 | NUR ---
Opening Note: Patient laying in bed resting, son and daughter at bedside. Patient denies pain and discomfort at this time. Breathing is even and unlabored on 2L nasal cannula. IV patent and intact running IVF per MD orders. No signs of infiltration noted. Arndt catheter patent and intact with visible urine output. Safety precautions in place; bed in lowest position, wheels locked, side rails x3 and call light within reach. No needs at this time. Will continue to monitor.
[2018-12-31 07:53] LABS: ANION GAP 7 (5-15); CALCIUM 8.2 mg/dL (8.4-11.0); CHLORIDE 100 mmol/L (98-107); CREATININE 0.68 mg/dL (0.55-1.30); GLUCOSE 106 mg/dL (70-99); PHOSPHORUS 2.6 mg/dL (2.7-4.5); POTASSIUM 3.6 mmol/L (3.5-5.1); SODIUM SERUM 130 mmol/L (136-145); UREA NITROGEN, BLOOD 12 mg/dL (8-21)
[2018-12-31 08:07] VITALS: BP_SYST 155
[2018-12-31] MEDS: NITROGLYCERIN 0.4 MG/HR PATCH.TD24 TD SCH (08:13)
[2018-12-31 08:14] LABS: BASOPHILS % (AUTO) 0.4 % (0.0-2.0); EOSINOPHILS % (AUTO) 2.2 % (0.0-4.0); HEMATOCRIT 34.3 % (36-48); HEMOGLOBIN 11.5 g/dL (12.0-16.0); LYMPHOCYTES # (AUTO) 1.3 K/uL (1.0-5.5); LYMPHOCYTES % (AUTO) 23.1 % (20.5-51.5); MEAN CORPUSCULAR HEMOGLOBIN 31 pg (27-31); MEAN CORPUSCULAR HGB CONC 34 % (32-36); MEAN CORPUSCULAR VOLUME 91 fL (79.0-98.0); MONOCYTES % (AUTO) 14.8 % (1.7-9.3); NEUTROPHILS # (AUTO) 3.4 K/uL (1.8-7.7); NEUTROPHILS % (AUTO) 59.5 % (40.0-70.0); PLATELET COUNT (AUTO) 159 K/uL (130-430); RED BLOOD CELL COUNT(AUTO) 3.77 MIL/uL (4.2-6.2); RED CELL DISTRIBUTION WIDTH 14.2 % (9.0-15.0); WHITE BLOOD COUNT (AUTO) 5.7 K/uL (4.8-10.8)
[2018-12-31] MEDS: CARVEDILOL 3.125 MG TABLET (COREG) PO SCH (08:14)
[2018-12-31] MEDS: DICLOFENAC SODIUM 25 MG TABLET.DR PO SCH (08:14)
[2018-12-31] MEDS: ASPIRIN 81 MG TABLET(ECOTRIN) PO SCH (08:14)
[2018-12-31 08:15] LABS: EOSINOPHILS # (AUTO) 0.1 K/uL (0.0-0.4); MONOCYTES # (AUTO) 0.9 K/uL (0.0-1.0)
[2018-12-31] MEDS: BISACODYL 5 MG TABLET.DR (DULCOLAX) PO SCH (08:16)
[2018-12-31] MEDS: ENOXAPARIN SODIUM 60 MG/0.6 ML SYRINGE SUBCUT SCH ×2 (08:17→22:10)
[2018-12-31] MEDS ORDERED: NA PHOS 15 MM in NS 250 ML IV ONE (09:00)
--- NOTE | 2018-12-31 10:05 | NUR ---
Rounds: Patient in bed resting, repositioned by family members. Will continue to monitor.
[2018-12-31 10:22] LABS: ERYTHROCYTE SEDIMENTATION RATE 60 MM/HR (0-20)
--- NOTE | 2018-12-31 11:29 | NUR ---
Pt Note Patient very sleepy today; unsafe to perform therapy today, RPT present, nursing and family members aware.
[2018-12-31 11:55] VITALS: BP_SYST 140
[2018-12-31] MEDS: cefTRIAXone 1 GM in D5W 50 ML IV SCH (12:14)
--- NOTE | 2018-12-31 12:14 | NUR ---
Rounds: Patient in bed resting. Family at bedside. Patient denies pain and discomfort. Breathing is even and unlabored with no distress noted. IVF infusing with no signs of infiltration. Morning medications tolerated well. Safety precautions in place and call light within reach.
--- NOTE | 2018-12-31 13:58 | NUR ---
Rounds: Patient in bed resting. Was helped up to BSC by family members and back to bed. Will continue to monitor.
--- NOTE | 2018-12-31 15:00 | NUR ---
RT NOTES BONNIE, PT SON, AT BEDSIDE AND REQUESTED TO ASSESS PT BREATH SOUND. AUSCULTATED LUNG SOUNDS WHILE PT RIGHT SIDE LAYING SLEEPING. NO WHEEZING/ CRACKLES HEARD AT THIS TIME. HR 67, SPO2 96% ON RA. SON STATED LAST NIGHT AFTER BREATHING TX, PT GOT RESTLESS AND KEPT MUMBLING WORDS BECOMING HALLUCINATED. HE SUSPECTED ITS DUE TO SIDE EFFECTS OF ALBUTEROL TX. BONNIE ASKED IF ABLE TO SWITCH WITH OTHER BREATHING TX. MANDY CORONEL MADE AWARE. NO TX GIVEN. WAIT FOR NEW ORDERS.
[2018-12-31 15:38] VITALS: BP_SYST 119
--- NOTE | 2018-12-31 15:38 | NUR ---
Quentin Olsen: Paging Dr. Olsen regarding family concerns. Family states that patient get confused and starts mumbling things when given breathing treatment (Iprat-Albut). Family requesting different medication be given during breathing treatment. Awaiting callback. Addendum: 12/31/18 at 1546 by Sugar Soto RN Spoke to Dr. Olsen. Orders received regarding breathing treatment. Orders to be entered by MANDY.
[2018-12-31] MEDS: NACL 0.9% 1,000 ML IV SCH (17:17)
[2018-12-31] MEDS: HYDROcodone/ACETAMIN 10-325 MG TAB PO PRN (18:25)
--- NOTE | 2018-12-31 18:59 | NUR ---
Closing Note: Patient laying in bed resting, family at bedside. Patient medicated for pain, will reassess. Breathing is even and unlabored on 2L nasal cannula. IV patent and intact running IVF per MD orders. No signs of infiltration noted. Arndt catheter patent and intact with visible urine output. Safety precautions in place; bed in lowest position, wheels locked, side rails x3 and call light within reach. All needs met. Will endorse plan of care to NOC, nurse.
--- NOTE | 2018-12-31 19:11 | NUR ---
Paged Guillermo Rdz s/w David
--- NOTE | 2018-12-31 19:15 | NUR ---
Dr. Jacobs called back and spoke with Sugar. Orders received.
--- NOTE | 2018-12-31 19:24 | NUR ---
OPENING NOTE Received report from Sugar. Patient resting in bed awake, alert, oriented x4. Breathing unlabored and even on 2L oxygen via NC. No signs of distress, no needs at this time. Fall, safety, aspiration precautions in place. Bed in lowest position, brake on, alarm on, call light within reach. Family at the bedside. IVF infusing as ordered. Will continue to monitor.
[2018-12-31] MEDS ORDERED: PHENAZOPYRIDINE HCL 100 MG TABLET PO ONE (19:30)
[2018-12-31] MEDS: LevALBUTEROL HCL 1.25 MG/0.5 ML *CONC.* VIAL.NEB (XOPENEX CONC.) INH SCH (19:45)
--- NOTE | 2018-12-31 19:45 | NUR ---
RT at the bedside administering breathing treatment
[2018-12-31] MEDS: BENZOCAINE/MENTHOL 1 EACH LOZENGE MM PRN (19:46)
--- NOTE | 2018-12-31 19:49 | NUR ---
Patient c/o sore throat. Administered PRN cepacol PO as ordered.
[2018-12-31 20:20] VITALS: BP_SYST 144
--- NOTE | 2018-12-31 20:38 | NUR ---
Med pass. Patient requesting to hold off on lovenoc for now. Will recheck with patient in a bit if patient will want lovenox
--- NOTE | 2018-12-31 22:11 | NUR ---
Administered scheduled lovenox SQ as ordered.
[2019-01-01 00:12] VITALS: BP_SYST 141
--- NOTE | 2019-01-01 00:39 | NUR ---
Patient resting in bed with eyes closed. Breathing unlabored and even on 2L oxygen via NC. No signs of distress, no needs at this time. Fall, safety, aspiration precautions in place. Bed in lowest position, brake on, alarm on, call light within reach. Family at the bedside. IVF infusing as ordered. Will continue to monitor.
[2019-01-01] MEDS: LevALBUTEROL HCL 1.25 MG/0.5 ML *CONC.* VIAL.NEB (XOPENEX CONC.) INH SCH ×4 (00:48→19:00)
[2019-01-01] MEDS: BENZOCAINE/MENTHOL 1 EACH LOZENGE MM PRN ×2 (01:23→16:47)
--- NOTE | 2019-01-01 01:24 | NUR ---
Administered PRN cepacol PO as ordered. Family at the bedside
[2019-01-01] MEDS: HYDROcodone/ACETAMIN 10-325 MG TAB PO PRN ×2 (04:33→16:48)
--- NOTE | 2019-01-01 04:51 | NUR ---
Patient c/o pain. Administered PRN norco 10 PO as ordered
[2019-01-01] MEDS: LEVOTHYROXINE SODIUM 0.05 MG TABLET PO SCH (06:33)
[2019-01-01] MEDS: OMEPRAZOLE 20 MG CAPSULE.DR (PriLOSEC) PO SCH (06:33)
[2019-01-01 06:46] LABS: HEMATOCRIT 35.4 % (36-48); HEMOGLOBIN 12.1 g/dL (12.0-16.0); MEAN CORPUSCULAR HEMOGLOBIN 31 pg (27-31); MEAN CORPUSCULAR VOLUME 91 fL (79.0-98.0); RED BLOOD CELL COUNT(AUTO) 3.91 MIL/uL (4.2-6.2); WHITE BLOOD COUNT (AUTO) 7.6 K/uL (4.8-10.8)
[2019-01-01 06:47] LABS: BASOPHILS % (AUTO) 0.4 % (0.0-2.0); EOSINOPHILS # (AUTO) 0.2 K/uL (0.0-0.4); EOSINOPHILS % (AUTO) 2.7 % (0.0-4.0); LYMPHOCYTES # (AUTO) 1.4 K/uL (1.0-5.5); LYMPHOCYTES % (AUTO) 17.9 % (20.5-51.5); MEAN CORPUSCULAR HGB CONC 34 % (32-36); MONOCYTES % (AUTO) 13.8 % (1.7-9.3); NEUTROPHILS # (AUTO) 4.9 K/uL (1.8-7.7); NEUTROPHILS % (AUTO) 65.2 % (40.0-70.0); PLATELET COUNT (AUTO) 195 K/uL (130-430); RED CELL DISTRIBUTION WIDTH 13.7 % (9.0-15.0)
[2019-01-01 06:57] LABS: ANION GAP 8 (5-15); C-REACTIVE PROTEIN QUANT 6.5 mg/dL (0-0.5); CALCIUM 8.3 mg/dL (8.4-11.0); CHLORIDE 98 mmol/L (98-107); CREATININE 0.58 mg/dL (0.55-1.30); GLUCOSE 104 mg/dL (70-99); POTASSIUM 3.5 mmol/L (3.5-5.1); SODIUM SERUM 130 mmol/L (136-145); UREA NITROGEN, BLOOD 8 mg/dL (8-21)
--- NOTE | 2019-01-01 07:00 | NUR ---
CLOSING NOTE Patient resting in bed with eyes closed. Breathing unlabored and even on 2L oxygen via NC. No signs of distress, no needs at this time. Fall, safety, aspiration precautions in place. Bed in lowest position, brake on, alarm on, call light within reach. Family at the bedside. IVF infusing as ordered. Will endorse cares to day shift nurse.
[2019-01-01 08:00] VITALS: BP_SYST 161
--- NOTE | 2019-01-01 08:00 | NUR ---
Note Pt resting in bed, pt's son at bedside at this time. No SOB/resp distress or pain/discomfort noted at this time. Pt on O2 at 2L/nc. IV on left AC and left hand at this time, which is patent and intact at this time. Breakfast tray on bedside table. No needs noted at this time. Call light within reach.
[2019-01-01 08:01] LABS: ERYTHROCYTE SEDIMENTATION RATE 69 MM/HR (0-20)
[2019-01-01] MEDS: PHENAZOPYRIDINE HCL 100 MG TABLET PO SCH ×3 (09:00→17:29)
[2019-01-01] MEDS: ASPIRIN 81 MG TABLET(ECOTRIN) PO SCH (09:01)
[2019-01-01] MEDS: CARVEDILOL 3.125 MG TABLET (COREG) PO SCH (09:01)
[2019-01-01] MEDS: DICLOFENAC SODIUM 25 MG TABLET.DR PO SCH (09:01)
[2019-01-01] MEDS: BISACODYL 5 MG TABLET.DR (DULCOLAX) PO SCH (09:01)
[2019-01-01] MEDS: NITROGLYCERIN 0.4 MG/HR PATCH.TD24 TD SCH (09:02)
[2019-01-01] MEDS: ENOXAPARIN SODIUM 60 MG/0.6 ML SYRINGE SUBCUT SCH ×2 (09:08→22:30)
[2019-01-01] MEDS ORDERED: FUROSEMIDE 20 MG/2 ML VIAL IVP ONE (09:30)
[2019-01-01] MEDS ORDERED: POTASSIUM CHLORIDE 20 MEQ TAB.PRT.SR PO ONE (09:30)
[2019-01-01 11:31] VITALS: BP_SYST 158
--- NOTE | 2019-01-01 12:00 | NUR ---
Note 0905 - Dr Olsen at bedside and evaluating pt at this time. O2 at 2L/nc verified by Dr Olsen. Pt's daughter and 2 other family members at bedside attending to pt's needs and care. 1115am - Dr Jeronimo at bedside evaluating pt and writing orders. Pt resting in bed. No needs noted at this time. Call light within reach.
[2019-01-01] MEDS: cefTRIAXone 1 GM in D5W 50 ML IV SCH (12:17)
--- NOTE | 2019-01-01 12:50 | NUR ---
Note Guillermo Medrano at bedside assessing pt and writing orders at this time. No needs noted. IVF's and IVPB antibiotics infusing well through left IV site. Call light within reach. No needs noted a this time.
--- NOTE | 2019-01-01 14:56 | NUR ---
Discharge Planning: DCP faxed patient referral to Shital parra [facility] (f [phone] p [phone]) DCP will follow up.
--- NOTE | 2019-01-01 16:00 | NUR ---
Note Pt was assisted maximum assist from bed to BSC by CNAs. Pt finished having bowel movement and now sitting up to eat her lunch. No needs noted at this time. No SOB/resp distress noted at this time. Call light within reach.
--- NOTE | 2019-01-01 16:39 | NUR ---
DC PLANNING Order for LTAC eval. Spoke w dtr Izabela @ bedside in [place], informed of order & explained LTAC. Gave dtr list of LTAC's & also pamphlet of [place] in [place] explaining LTAC. States would consider if family able to stay w pt @ night. States she has to discuss w her siblings & will let us know.
[2019-01-01 16:46] VITALS: BP_SYST 152
[2019-01-01] MEDS: NACL 0.9% 1,000 ML IV SCH (17:28)
--- NOTE | 2019-01-01 18:25 | NUR ---
Note Pt has had family at bedside to assist all shift. Tele unit attached and intact all shift. Arndt catheter intact and draining well all shift. Pt was checked on q1' and PRN all shift for needs and care. No SOB/resp distress or pain/discomfort noted at this time. IV in left forearm intact and patent infusing IVF's well. No needs noted at this time. Call light within reach.
[2019-01-01 19:00] VITALS: BP_SYST 125
[2019-01-02 00:16] VITALS: BP_SYST 139
[2019-01-02] MEDS: LevALBUTEROL HCL 1.25 MG/0.5 ML *CONC.* VIAL.NEB (XOPENEX CONC.) INH SCH ×4 (00:59→19:00)
[2019-01-02 06:07] LABS: ANION GAP 3 (5-15); C-REACTIVE PROTEIN QUANT 6.9 mg/dL (0-0.5); CALCIUM 8.4 mg/dL (8.4-11.0); CHLORIDE 100 mmol/L (98-107); CREATININE 0.54 mg/dL (0.55-1.30); GLUCOSE 91 mg/dL (70-99); SODIUM SERUM 130 mmol/L (136-145); UREA NITROGEN, BLOOD 9 mg/dL (8-21)
[2019-01-02 06:13] LABS: HEMATOCRIT 34.6 % (36-48); HEMOGLOBIN 11.7 g/dL (12.0-16.0); MEAN CORPUSCULAR VOLUME 91 fL (79.0-98.0); RED BLOOD CELL COUNT(AUTO) 3.81 MIL/uL (4.2-6.2); WHITE BLOOD COUNT (AUTO) 7.9 K/uL (4.8-10.8)
[2019-01-02 06:14] LABS: BASOPHILS % (AUTO) 0.4 % (0.0-2.0); EOSINOPHILS # (AUTO) 0.3 K/uL (0.0-0.4); EOSINOPHILS % (AUTO) 4.4 % (0.0-4.0); LYMPHOCYTES # (AUTO) 1.9 K/uL (1.0-5.5); LYMPHOCYTES % (AUTO) 23.9 % (20.5-51.5); MEAN CORPUSCULAR HEMOGLOBIN 31 pg (27-31); MEAN CORPUSCULAR HGB CONC 34 % (32-36); MONOCYTES # (AUTO) 0.9 K/uL (0.0-1.0); MONOCYTES % (AUTO) 11.4 % (1.7-9.3); NEUTROPHILS # (AUTO) 4.7 K/uL (1.8-7.7); NEUTROPHILS % (AUTO) 59.9 % (40.0-70.0); PLATELET COUNT (AUTO) 213 K/uL (130-430); RED CELL DISTRIBUTION WIDTH 14.2 % (9.0-15.0)
[2019-01-02] MEDS: PHENAZOPYRIDINE HCL 100 MG TABLET PO SCH ×3 (08:30→17:41)
[2019-01-02 08:45] LABS: ERYTHROCYTE SEDIMENTATION RATE 71 MM/HR (0-20)
[2019-01-02] MEDS: BISACODYL 5 MG TABLET.DR (DULCOLAX) PO SCH (09:00)
[2019-01-02] MEDS: DICLOFENAC SODIUM 25 MG TABLET.DR PO SCH (09:00)
[2019-01-02] MEDS: CARVEDILOL 3.125 MG TABLET (COREG) PO SCH (09:00)
[2019-01-02] MEDS: NITROGLYCERIN 0.4 MG/HR PATCH.TD24 TD SCH (09:00)
[2019-01-02] MEDS: ASPIRIN 81 MG TABLET(ECOTRIN) PO SCH (09:00)
[2019-01-02] MEDS: ENOXAPARIN SODIUM 60 MG/0.6 ML SYRINGE SUBCUT SCH ×2 (09:00→21:30)
[2019-01-02] MEDS ORDERED: POTASSIUM CHLORIDE 10 MEQ TAB.PRT.SR PO ONE (09:45)
[2019-01-02] MEDS ORDERED: FUROSEMIDE 20 MG/2 ML VIAL IVP ONE (09:45)
--- NOTE | 2019-01-02 10:00 | NUR ---
[facility] resumed Pt sat up in bed and ate her breakfast with assistance from her son. No SOB/resp distress or severe pain/discomfort was noted at this time. IV in left forearm intact and patent infusing IVF's well. Arndt catheter intact and draining well. Tele unit intact and attached. No needs noted at this time. Call light within reach.
[2019-01-02] MEDS: OMEPRAZOLE 20 MG CAPSULE.DR (PriLOSEC) PO SCH (10:10)
[2019-01-02] MEDS: LEVOTHYROXINE SODIUM 0.05 MG TABLET PO SCH (10:10)
[2019-01-02 11:00] VITALS: BP_SYST 139
[2019-01-02] MEDS: BENZOCAINE/MENTHOL 1 EACH LOZENGE MM PRN (11:00)
[2019-01-02 11:28] VITALS: BP_SYST 148
[2019-01-02] MEDS: cefTRIAXone 1 GM in D5W 50 ML IV SCH (11:55)
--- NOTE | 2019-01-02 13:24 | NUR ---
Nutrition F/U Admitting Diagnosis NSTEMI and Hyponatremia Reviewed Pertinent Medical/Surgical Hx Medical Record Patient Family Medical History Comment: PMH per ER MD report: Cardiac disorders (chest pain), cerebrovascular accidents (mini strokes), DM, HTN, gastroesophageal reflux, thyroid disease Updated per MD report 12/28/18: NSTEMI, hyponatremia, UTI, elevated Troponin 01/02/19 ID MD: septic shock-resolved, gram negative septisemia-E. Coli, acute pyelonephritis, obesity, VICKI Subjective Information Pt seen resting in bed w/ multiple family members at bedside. Pt has been eating fine, no c/o chewing/swallowing. Pt has had a bit of constipation. RD encouraged pt to try to increase PO intakes of fiber-rich foods and water. Current diet remains appropriate. Current Diet Order/Nutrition Support Cardiac x5 days Patient/Significant Other Able To Verbalize Education Provided Not Indicated Pertinent Medications Reviewed Pertinent Labs ALP 97 WNL (improved, 12/29/18), AST 31 WNL (improved 12/29/18), WBC 7.9 WNL (improved), TROP 1.219 H (12/29/18), Na 130 L, Phosphorous 2.6 L (12/31/18) Height (Feet) 5 feet Height (Inches) 0.00 inches Weight (Pounds) 209 pounds (01/01/19) Weight (Calculated Kilograms) 94.107519 kilograms Patient Weight 94.801 kg Body Mass Index 40.81 kg/m2 Usual Weight 220 lbs %UBW 95 %IBW 209 [place]/Adjusted Body Weight IBW 100 lbs, 45 kg ABW 127 lbs, 58 kg Recent Weight Change Yes - Per son, pt has gained wt in past 6 months; unable to verify amount Weight Status Morbidly Obese Gastrointestinal Symptoms Nausea Last BM 01/01/19 Food Allergies No Usual Diet At Home Regular Skin Integrity Comment: Ever Score: 15 Per RN note, +1 non-pittign edema to bilateral ankle, and generalized pitting edema Current % PO Good (75-100%) Estimated Energy Expenditure (kcals/day) 5199-2904 kcal/day (25-30 kcal/kg ABW for geriatric maintenance) Estimated Protein Required (g/day) 58-70 g/day (1-1.2 g/kg ABW for geriatric maintenance) Estimated Fluid Required (l/day) Per MD d/t hyponatremia Problem/Etiology/Signs/Symptoms Malnutrition R/T morbid obesity AEB 216 lbs CBW, 209% IBW, and BMI 41. *ongoing Expected Outcomes/Goals -Monitor pt appetite and PO intake w/ goal of pt meeting at least 85% of estimated nutritional needs, labs trending WNL, skin integrity/wt maintenance. Dietitian Recommendations *Recommend continuing cardiac diet per MD Follow Up Mod Risk: F/U in 3-5 days
--- NOTE | 2019-01-02 13:33 | NUR ---
Dietitian Recommendations *Recommend continuing cardiac diet per LP, RD Please refer to Nutrition F/U for details.
--- NOTE | 2019-01-02 15:00 | NUR ---
Note Pt has had a family member at bedside 24' a day to attend to her needs and care. Pt worked with PT on exercise on side of bed. Pt is maximum 2 person assist. Pt's family were instructed to encourage pt to deep breathe and cough q1' and PRN to assist with O2 saturation and to get off O2 at 2L/nc. No needs noted at this time. Call light within reach.
[2019-01-02 16:01] VITALS: BP_SYST 127
[2019-01-02] MEDS: NACL 0.9% 1,000 ML IV SCH (17:41)
--- NOTE | 2019-01-02 18:00 | NUR ---
Note Pt sitting up in bed eating her dinner. Pt's daughter at bedside assisting pt. No SOB/resp distress or severe pain/discomfort noted at this time. IV in left forearm intact and patent infusing IVF's well. Pt checked on q1' and PRN all shift for needs and care. Tele unit attached and intact all shift. Arndt catheter intact and draining well all shift. No needs noted at this time. Call light within reach.
--- NOTE | 2019-01-02 19:30 | NUR ---
OPENING NOTE Patient is awake, AOx4, resting in bed. She is talking with family and is in no sign of distress. She has an IV to L hand w/ IVF infusing and SL IV to LAC. She has a mercedes w/ drainage bag to gravity. Bed is Locked to lowest position, instructed on use of bed alarm. Updated board. Will monitor.
[2019-01-02 20:00] VITALS: BP_SYST 154
--- NOTE | 2019-01-02 21:30 | NUR ---
NOTES Patient is awake, resting in comfortable position. Due medication, Lovenox, was administered and she was educated on indication and side effects. No further needs at this time. Will monitor.
[2019-01-03] MEDS: LevALBUTEROL HCL 1.25 MG/0.5 ML *CONC.* VIAL.NEB (XOPENEX CONC.) INH SCH ×2 (00:11→19:00)
[2019-01-03 00:58] VITALS: BP_SYST 159
--- NOTE | 2019-01-03 01:30 | NUR ---
NOTES - Arndt bag leaking Arndt drainage bag was noted to be leaking. It was replace with a new drainage bag. Will monitor.
--- NOTE | 2019-01-03 02:10 | NUR ---
NOTES Amina was visitinng and reports that LAC IV seems to irritate her mother. The LAC is SL and she has a patent IV to L hand with fluids infusing. Patient's LAC IV was removed. The catheter tip was visualized and no bleeding noted.
[2019-01-03] MEDS: OMEPRAZOLE 20 MG CAPSULE.DR (PriLOSEC) PO SCH (06:05)
[2019-01-03 06:06] LABS: ANION GAP 7 (5-15); CHLORIDE 102 mmol/L (98-107); CREATININE 0.65 mg/dL (0.55-1.30); GLUCOSE 99 mg/dL (70-99); POTASSIUM 3.9 mmol/L (3.5-5.1); SODIUM SERUM 139 mmol/L (136-145); UREA NITROGEN, BLOOD 9 mg/dL (8-21)
[2019-01-03] MEDS: LEVOTHYROXINE SODIUM 0.05 MG TABLET PO SCH (06:06)
--- NOTE | 2019-01-03 06:30 | NUR ---
CLOSING NOTES Patient resting in comfortable position, no s/sx of distress. IVF infusing as ordered. Family at bedside. Noted irritation to skin on left anterior chest where black tele lead was. Will document w/ photograph.
[2019-01-03 07:01] LABS: HEMATOCRIT 34.6 % (36-48); HEMOGLOBIN 11.7 g/dL (12.0-16.0); WHITE BLOOD COUNT (AUTO) 8.2 K/uL (4.8-10.8)
[2019-01-03 07:02] LABS: BASOPHILS % (AUTO) 0.5 % (0.0-2.0); EOSINOPHILS # (AUTO) 0.4 K/uL (0.0-0.4); EOSINOPHILS % (AUTO) 4.3 % (0.0-4.0); LYMPHOCYTES # (AUTO) 2.1 K/uL (1.0-5.5); LYMPHOCYTES % (AUTO) 25.6 % (20.5-51.5); MEAN CORPUSCULAR HEMOGLOBIN 31 pg (27-31); MEAN CORPUSCULAR HGB CONC 34 % (32-36); MEAN CORPUSCULAR VOLUME 91 fL (79.0-98.0); MONOCYTES # (AUTO) 0.8 K/uL (0.0-1.0); MONOCYTES % (AUTO) 10.3 % (1.7-9.3); NEUTROPHILS # (AUTO) 4.9 K/uL (1.8-7.7); NEUTROPHILS % (AUTO) 59.3 % (40.0-70.0); PLATELET COUNT (AUTO) 265 K/uL (130-430); RED CELL DISTRIBUTION WIDTH 13.7 % (9.0-15.0)
[2019-01-03 07:34] LABS: C-REACTIVE PROTEIN QUANT 4.8 mg/dL (0-0.5)
--- NOTE | 2019-01-03 07:58 | NUR ---
AM note patient resting in bed, a/ox4, speaks maltese and lithuanian, family is at bedside, assessment complete, IV line is patent and infusing well, Arndt Catheter in place draining to gravity, educated the patient and family on plan of care and call light system and to call for any assistance, they verbalized understanding, bed in lowest position, two side rails up, call light within reach, fall and aspiration precautions in place.
[2019-01-03] MEDS: PHENAZOPYRIDINE HCL 100 MG TABLET PO SCH ×3 (08:05→19:28)
[2019-01-03] MEDS: ASPIRIN 81 MG TABLET(ECOTRIN) PO SCH (08:05)
[2019-01-03] MEDS: NITROGLYCERIN 0.4 MG/HR PATCH.TD24 TD SCH (08:05)
[2019-01-03] MEDS: DICLOFENAC SODIUM 25 MG TABLET.DR PO SCH (08:05)
[2019-01-03] MEDS: CARVEDILOL 3.125 MG TABLET (COREG) PO SCH (08:06)
[2019-01-03] MEDS: BISACODYL 5 MG TABLET.DR (DULCOLAX) PO SCH (08:06)
[2019-01-03] MEDS: ENOXAPARIN SODIUM 60 MG/0.6 ML SYRINGE SUBCUT SCH ×2 (08:07→22:17)
--- NOTE | 2019-01-03 08:10 | NUR ---
Medication patient resting in bed, awake, family at bedside, educated the patient and family on medications uses and potential side effects, they verbalized understanding, patient tolerated medication administration well, family requesting to review medications because patient is not on her regular BP meds, will inform MD, no other needs at this time, bed in lowest position, two side rails up, call light within reach, fall and aspiration precautions in place.
[2019-01-03 10:08] VITALS: BP_SYST 175
[2019-01-03 10:08] LABS: ERYTHROCYTE SEDIMENTATION RATE 82 MM/HR (0-20)
--- NOTE | 2019-01-03 12:10 | NUR ---
RN rounds/Medication patient resting in bed, awake, using the bedpan at this time, educated the patient and daughter on medication, uses and potential side effects, the patient and her daughter verbalized understanding and tolerated well, IV line is patent and infusing well, no other needs at this time, bed in lowest position, two side rails up, call light within reach, fall and aspiration precautions in place.
[2019-01-03] MEDS: cefTRIAXone 1 GM in D5W 50 ML IV SCH (12:11)
[2019-01-03] MEDS ORDERED: CARVEDILOL 3.125 MG TABLET (COREG) PO ONE (14:24)
[2019-01-03] MEDS ORDERED: LOSARTAN POTASSIUM 50 MG TABLET (COZAAR) PO ONE (14:30)
--- NOTE | 2019-01-03 14:30 | NUR ---
Blood pressure medication patient resting in bed, awake, family at bedside, educated on blood pressure medications uses and potential side effects, patient verbalized understanding and tolerated well, no other needs at this time, continuing to monitor, bed in lowest position, three side rails up, call light within reach, fall and aspiration precautions in place.
[2019-01-03 14:59] VITALS: BP_SYST 177
[2019-01-03 16:16] VITALS: BP_SYST 157
--- NOTE | 2019-01-03 16:29 | NUR ---
RN rounds patient resting in bed, eyes closed, breathing is even and unlabored, no signs of distress, continuing to monitor, bed in lowest position, three side rails up, call light within reach, fall and aspiration precautions in place.
[2019-01-03 16:41] VITALS: BP_SYST 162
--- NOTE | 2019-01-03 16:46 | NUR ---
DC Planning: No authorization received from [facility] today. Per Karlene/natacha at [facility] request: faxing up to date progress notes to fax# [phone] and to # [phone]. Addendum: 01/04/19 at 1039 by Erin Pizano RN late entry for 01/03/19 at 1730: Received call from Lilo: discussing dcp to LTAC. Per Lilo, the pt 's medical condition does not meet LTAC criteria, so that the request to LTAC is denied. The pt. could go to a snf which she would fax the contracted snf list this evening.
[2019-01-03] MEDS: NACL 0.9% 1,000 ML IV SCH (18:01)
--- NOTE | 2019-01-03 18:25 | NUR ---
Closing note patient resting in bed, awake, denies pain, family stated that MANAGER DIALYSIS checked the blood pressure again and it was lower, was not informed by MANAGER DIALYSIS of the blood pressure reading, all other needs met, will endorse report to NOC shift nurse, bed in lowest position, three side rails up, call light within reach, fall and aspiration precautions in place.
--- NOTE | 2019-01-03 19:45 | NUR ---
OPENING NOTE Patient is awake, AOx4, resting in bed and is in no sign of distress. VSS with B/P 133/52 and HR 63. She has an IV to L hand w/ IVF infusing. She was repositioned for comfort She has a mercedes w/ drainage bag to gravity. Bed is Locked to lowest position, instructed on use of bed alarm. Updated board. Will monitor.
[2019-01-03 20:00] VITALS: BP_SYST 133
--- NOTE | 2019-01-04 00:15 | NUR ---
NOTES Midnight v/s taken and B/P is elevated; 162/79. Will re-evaluate prior to calling MD.
--- NOTE | 2019-01-04 01:36 | NUR ---
ELEVATED B/P Blood pressure is elevated, 173/76, HR 67, SpO2 97% on 2l NC . Presently patient denies chest pain or other pain. Paged MD for medication orders.
--- NOTE | 2019-01-04 01:50 | NUR ---
PAGED PAGED DOCTOR Arjun WHITTAKER
--- NOTE | 2019-01-04 02:00 | NUR ---
PAGED PAGED Arjun WHITTAKER
--- NOTE | 2019-01-04 02:20 | NUR ---
2ND PAGED PAGED DOCTOR Arjun MATOS AGAIN Addendum: 01/04/19 at 0250 by Genet Sandoval CNA 3ND PAGED NOT 2ND
--- NOTE | 2019-01-04 03:05 | NUR ---
S/W Dr. Aj Jacobs s/w Dr. Aj Jacobs, informed of elevated blood pressure and he provided medication orders. He ordered Coreg 12.5mg one time now and Coreg BID. He also ordered Hydralazine 10mg IVP Q6 PRN sbp > 150. Read back order.
[2019-01-04] MEDS ORDERED: CARVEDILOL 12.5 MG TABLET (COREG) PO ONE (03:15)
--- NOTE | 2019-01-04 05:10 | NUR ---
NOTES Blood pressure remains elevated, 152/70 and HR 62, after coreg PO 12.5 mg given. Will administer Hydralazine PRN as ordered.
[2019-01-04] MEDS: OMEPRAZOLE 20 MG CAPSULE.DR (PriLOSEC) PO SCH (05:32)
[2019-01-04] MEDS: hydrALAZINE HCL 20 MG/ML VIAL IVP PRN ×2 (05:32→17:20)
[2019-01-04] MEDS: NACL 0.9% 1,000 ML IV SCH (05:32)
[2019-01-04 06:16] VITALS: BP_SYST 162
--- NOTE | 2019-01-04 06:20 | NUR ---
NOTES Blood pressure is dropping it is 148/63, HR 70. Will monitor.
--- NOTE | 2019-01-04 06:30 | NUR ---
CLOSING NOTE Patient is awake, she is having a little anxiety. I let her know there is ativan medication for anxiety and her daughter refused. Needs met throughout shift. IVF infusing as ordered. Will endorse care to day shift nurse.
[2019-01-04] MEDS: LEVOTHYROXINE SODIUM 0.05 MG TABLET PO SCH (06:58)
[2019-01-04 07:15] LABS: ALANINE AMINOTRANSFERASE 23 U/L (12-78); ALBUMIN 2.3 g/dL (3.4-4.8); ANION GAP 4 (5-15); ASPARTATE AMINOTRANSFERASE 25 U/L (10-37); C-REACTIVE PROTEIN QUANT 3.2 mg/dL (0-0.5); CALCIUM 9.1 mg/dL (8.4-11.0); CHLORIDE 99 mmol/L (98-107); CREATININE 0.62 mg/dL (0.55-1.30); GLUCOSE 105 mg/dL (70-99); POTASSIUM 3.6 mmol/L (3.5-5.1); SODIUM SERUM 132 mmol/L (136-145); TOTAL BILIRUBIN 0.3 mg/dL (0.0-1.0); UREA NITROGEN, BLOOD 8 mg/dL (8-21)
[2019-01-04 07:25] LABS: HEMATOCRIT 33.7 % (36-48); HEMOGLOBIN 11.5 g/dL (12.0-16.0); LYMPHOCYTES % (AUTO) 31.9 % (20.5-51.5); MEAN CORPUSCULAR HEMOGLOBIN 31 pg (27-31); MEAN CORPUSCULAR HGB CONC 34 % (32-36); MEAN CORPUSCULAR VOLUME 91 fL (79.0-98.0); NEUTROPHILS % (AUTO) 54.9 % (40.0-70.0); PLATELET COUNT (AUTO) 290 K/uL (130-430); WHITE BLOOD COUNT (AUTO) 7.8 K/uL (4.8-10.8)
[2019-01-04 07:26] LABS: BASOPHILS % (AUTO) 0.4 % (0.0-2.0); EOSINOPHILS # (AUTO) 0.3 K/uL (0.0-0.4); EOSINOPHILS % (AUTO) 4.3 % (0.0-4.0); LYMPHOCYTES # (AUTO) 2.5 K/uL (1.0-5.5); MONOCYTES # (AUTO) 0.7 K/uL (0.0-1.0); MONOCYTES % (AUTO) 8.5 % (1.7-9.3); NEUTROPHILS # (AUTO) 4.3 K/uL (1.8-7.7)
--- NOTE | 2019-01-04 07:31 | NUR ---
PAGED PAGED MONICA GARCIA AT [phone] SPOKE WITH CHACHA.
--- NOTE | 2019-01-04 07:36 | NUR ---
S/W Spoke w/ Dr. Aj Jacobs for clarification of medication order. He ordered Coreg 12.5 mg PO BID.
--- NOTE | 2019-01-04 08:00 | NUR ---
OPENING NOTE patient is resting in bed, visitor present, A&Ox4, assessment completed, educated on plan of care and call light system, patient verbalized understanding, patient denies any pain at this time, patient on 2L nasal cannula, bed in the lowest position, two side rails up, call light within reach, fall and aspiration precautions in place, IV line clean and intact, mercedes intact.
[2019-01-04 08:44] LABS: ERYTHROCYTE SEDIMENTATION RATE 77 MM/HR (0-20)
[2019-01-04] MEDS: ASPIRIN 81 MG TABLET(ECOTRIN) PO SCH (08:58)
[2019-01-04] MEDS: BISACODYL 5 MG TABLET.DR (DULCOLAX) PO SCH (08:58)
[2019-01-04] MEDS: PHENAZOPYRIDINE HCL 100 MG TABLET PO SCH ×3 (08:58→18:41)
[2019-01-04] MEDS: CARVEDILOL 12.5 MG TABLET (COREG) PO SCH ×2 (08:59→20:57)
[2019-01-04] MEDS: DICLOFENAC SODIUM 25 MG TABLET.DR PO SCH (09:00)
[2019-01-04] MEDS ORDERED: CARVEDILOL 3.125 MG TABLET (COREG) PO SCH ×2 (09:00)
[2019-01-04] MEDS: LOSARTAN POTASSIUM 50 MG TABLET (COZAAR) PO SCH (09:00)
[2019-01-04] MEDS: NITROGLYCERIN 0.4 MG/HR PATCH.TD24 TD SCH (09:00)
[2019-01-04] MEDS: ENOXAPARIN SODIUM 60 MG/0.6 ML SYRINGE SUBCUT SCH ×2 (09:01→20:58)
[2019-01-04 09:30] VITALS: BP_SYST 163
--- NOTE | 2019-01-04 10:39 | NUR ---
DC Planning: Received the contracted snf list this am. RAJAN informed dr. Jacobs the insurance denied LTAC transfer. The md ordered pt. transfer to snf . RAJAN spoke with pt's beverly/Marylu at bedside she agreed with the POC. She requested snf in [facility]. Vendor of choice per insurance cotracted list provided: [facility], [facility], [facility], [facility], [facility], [facility]. Addendum: 01/05/19 at 1707 by Erin Pizano RN >> late entry : 1500: [facility] is accepted the pt per Aleah but transfer is pending authorization for insurance. RAJAN notified Marylu/beverly at bedside that [facility] the only facility where will allow family member to stay with pt. overnight. Mraylu stated she would talk with the family. Meanwhile, Aleah to get the auth from [email or web address] # [phone].
--- NOTE | 2019-01-04 11:44 | NUR ---
medications patient is resting in bed, visitor present,educated on medication use and side effects, patient verbalized understanding, patient denies any pain at this time, patient on 2L nasal cannula, bed in the lowest position, two side rails up, call light within reach, fall and aspiration precautions in place, IV line clean and intact, mercedes intact.
[2019-01-04] MEDS: cefTRIAXone 1 GM in D5W 50 ML IV SCH (11:45)
[2019-01-04 12:34] VITALS: BP_SYST 136
--- NOTE | 2019-01-04 13:55 | NUR ---
rounds patient is resting in bed, visitor present, patient denies any pain at this time, patient on 2L nasal cannula, no other needs at this time, bed in the lowest position, two side rails up, call light within reach, fall and aspiration precautions in place, IV line clean and intact, mercedes intact.
--- NOTE | 2019-01-04 14:00 | NUR ---
Discharge Planning: DCP faxed pt referral to [facility] ( f [phone] p [phone]) per Frieda rader, [facility] p [phone]) ALLEGRA is reviewing. Addendum: 01/04/19 at 1603 by Mary Anne Denny DP DCP spoke to Aleah parra [facility] (f [phone] p [phone]) accepting patient. Just waiting for auth DCP gave Aleah [facility] information Karlene (f [phone] p [phone]). per Karlene parra [facility] information (f [phone] p [phone]) transportation can be arranged with logistic care
[2019-01-04 17:12] VITALS: BP_SYST 136
--- NOTE | 2019-01-04 18:02 | NUR ---
Spoke to Karlene from [facility] informed me that patient was accepted at [facility], informed her that the family have not made a final decision and do not want her to be transferred there jase, I let Karlene know, she said she will be in contact with the case reviewer/marketing planner tomorrow about this.
[2019-01-04 18:04] VITALS: BP_SYST 128
--- NOTE | 2019-01-04 18:55 | NUR ---
closing note patient is resting in bed, visitor present, patient denies any pain at this time, patient on 2L nasal cannula, no other needs at this time, will endorse report to [facility] shift nurse to be aware of patient's elevated BP, and that family [facility], sales representatives from [facility] is aware of this, bed in the lowest position, two side rails up, call light within reach, fall and aspiration precautions in place, IV line clean and intact, mercedes intact.
--- NOTE | 2019-01-04 19:10 | NUR ---
OPENING NOTE Bedside report received from dayshift nurse. Patient received in bed, AOx4, no s/s of acute distress noted. Breathing even and unlabored, nasal canula attached, on 2L of oxygen. HOB raised. Patient denies pain or discomfort. No active bleeding noted. Call light with patient. Bed alarm on. Bed is locked and at lowest position. Patient's son is at bedside. Will continue to monitor.
[2019-01-04 20:00] VITALS: BP_SYST 141
--- NOTE | 2019-01-04 21:00 | NUR ---
ROUNDS Patient using bedside commode at this time. Patient was assisted by her daughter and son. Patient then assisted back to bed. Patient tolerated activity well. No signs of discomfort, chest rise and fall even bilaterally. IVF infusing well. All needs met at this time. Call light with patient. Bed alarm on. Will continue to monitor.
--- NOTE | 2019-01-04 23:00 | NUR ---
ROUNDS Patient in bed sleeping at this time. No s/s of acute distress noted. Breathing even and unlabored. IVF infusing well. Arndt attached, secured and draining by gravity. SCDs attached and operating. All needs met. Call light with patient. Bed alarm on. Will continue to monitor.
[2019-01-05] VITALS (10 sets, daily range): BP systolic 142–184
--- NOTE | 2019-01-05 01:00 | NUR ---
ROUNDS Patient in bed sleeping at this time. No s/s of acute distress noted. Breathing even and unlabored. IVF infusing well. Call light with patient. Bed alarm on. patient's daughter present at bedside. Will continue to monitor.
--- NOTE | 2019-01-05 03:00 | NUR ---
ROUNDS Patient in bed asleep. No signs of discomfort noted. Chest rise and fall even bilaterally. IVF infusing well. Arndt draining by gravity. Call light with patient. Bed alarm on. Will continue to monitor.
--- NOTE | 2019-01-05 05:00 | NUR ---
ROUNDS Patient in bed sleeping at this time. No signs of discomfort noted. Chest rise and fall even bilaterally. IVF infusing well. Patient's daughter and son are present at bedside. Call light with patient. Bed alarm on. Will continue to monitor.
[2019-01-05] MEDS: OMEPRAZOLE 20 MG CAPSULE.DR (PriLOSEC) PO SCH (06:04)
[2019-01-05] MEDS: LEVOTHYROXINE SODIUM 0.05 MG TABLET PO SCH (06:04)
[2019-01-05] MEDS: NACL 0.9% 1,000 ML IV SCH (06:05)
--- NOTE | 2019-01-05 06:31 | NUR ---
CLOSING NOTES Patient in bed sleeping at this time. No s/s of acute distress noted. Breathing even and unlabored. IVF infusing well. IV site shows no signs of infiltration or infection. HOB raised, nasal canula attached properly, on 2L of oxygen. SCDs attached and operating. Arndt attached, secured, and draining by gravity. All needs met throughout shift. Fall and safety precautions maintained throughout shift. Will continue to monitor until patient care is endorsed to oncoming dayshift nurse.
[2019-01-05 06:35] LABS: ANION GAP 7 (5-15); CHLORIDE 101 mmol/L (98-107); CREATININE 0.63 mg/dL (0.55-1.30); GLUCOSE 93 mg/dL (70-99); POTASSIUM 3.7 mmol/L (3.5-5.1); SODIUM SERUM 135 mmol/L (136-145); UREA NITROGEN, BLOOD 7 mg/dL (8-21)
[2019-01-05] MEDS: LevALBUTEROL HCL 1.25 MG/0.5 ML *CONC.* VIAL.NEB (XOPENEX CONC.) INH SCH ×2 (07:15→13:00)
--- NOTE | 2019-01-05 07:33 | NUR ---
Opening Note received SBAR report from personnel clerks supervisor RN, pt resting in bed, no acute distress noted, pts family at bedside, pt educated on use of call light and asked to call for assistance, pt verbalized understanding, call light in reach, pt educated on use of bed alarm for pt safety, pt refusing bed alarm, bed in low and locked position, fall and aspiration precautions in place.
[2019-01-05 07:52] LABS: WHITE BLOOD COUNT (AUTO) 7.4 K/uL (4.8-10.8)
[2019-01-05 07:53] LABS: BASOPHILS % (AUTO) 0.5 % (0.0-2.0); EOSINOPHILS # (AUTO) 0.3 K/uL (0.0-0.4); EOSINOPHILS % (AUTO) 3.6 % (0.0-4.0); HEMATOCRIT 34.7 % (36-48); HEMOGLOBIN 11.8 g/dL (12.0-16.0); LYMPHOCYTES # (AUTO) 2.3 K/uL (1.0-5.5); LYMPHOCYTES % (AUTO) 31.5 % (20.5-51.5); MEAN CORPUSCULAR HEMOGLOBIN 31 pg (27-31); MEAN CORPUSCULAR HGB CONC 34 % (32-36); MEAN CORPUSCULAR VOLUME 91 fL (79.0-98.0); MONOCYTES # (AUTO) 0.6 K/uL (0.0-1.0); MONOCYTES % (AUTO) 7.6 % (1.7-9.3); NEUTROPHILS # (AUTO) 4.2 K/uL (1.8-7.7); NEUTROPHILS % (AUTO) 56.8 % (40.0-70.0); PLATELET COUNT (AUTO) 302 K/uL (130-430); RED BLOOD CELL COUNT(AUTO) 3.82 MIL/uL (4.2-6.2); RED CELL DISTRIBUTION WIDTH 14.2 % (9.0-15.0)
[2019-01-05] MEDS: ASPIRIN 81 MG TABLET(ECOTRIN) PO SCH (07:55)
[2019-01-05] MEDS: DICLOFENAC SODIUM 25 MG TABLET.DR PO SCH (07:55)
[2019-01-05] MEDS: CARVEDILOL 12.5 MG TABLET (COREG) PO SCH ×2 (07:55→20:07)
[2019-01-05] MEDS: PHENAZOPYRIDINE HCL 100 MG TABLET PO SCH ×3 (07:55→18:20)
[2019-01-05] MEDS: LOSARTAN POTASSIUM 50 MG TABLET (COZAAR) PO SCH (07:55)
[2019-01-05] MEDS: NITROGLYCERIN 0.4 MG/HR PATCH.TD24 TD SCH (07:56)
[2019-01-05] MEDS: BISACODYL 5 MG TABLET.DR (DULCOLAX) PO SCH (07:56)
[2019-01-05] MEDS: ENOXAPARIN SODIUM 60 MG/0.6 ML SYRINGE SUBCUT SCH ×2 (07:57→20:08)
--- NOTE | 2019-01-05 09:27 | NUR ---
RN Rounds pts BP reassessed at this time, PRN BP medication not indicated per orders, see vital signs flow sheet, pt resting in bed, pts son and daughter at bedside, pt denies any pain, no acute distress noted, fall and aspiration precautions in place.
[2019-01-05 09:58] LABS: ERYTHROCYTE SEDIMENTATION RATE 71 MM/HR (0-20)
--- NOTE | 2019-01-05 10:40 | NUR ---
RN Rounds pt resting in bed, no acute distress noted, physical therapy reports that pt was assisted to bedside commode, BM x1, pt was assisted back to bed, pt denies any chest pain or shortness of breath, fall and aspiration precautions in place.
[2019-01-05] MEDS ORDERED: BISA-79 PO (11:04)
[2019-01-05] MEDS ORDERED: ASPI-1153 PO (11:04)
[2019-01-05] MEDS ORDERED: LOSA50TA3 PO (11:04)
[2019-01-05] MEDS ORDERED: COR12.5 PO (11:04)
[2019-01-05] MEDS: cefTRIAXone 1 GM in D5W 50 ML IV SCH (11:27)
--- NOTE | 2019-01-05 12:45 | NUR ---
RN Rounds pt resting in bed, denies any chest pain or shortness of breath, no acute distress noted, pts family at bedside, pt provided with additional blanket per request, no additional needs at this time, fall and aspiration precautions in place.
--- NOTE | 2019-01-05 13:04 | NUR ---
DC Planning: Sergo Diaz at [facility], gave bed assignment to room # 214 C , RN to report # [phone]. MANDY Morales made aware. Addendum: 01/05/19 at 1712 by Erin Pizano RN late entry: rajan tried to contact JUSTIN Valero x2 but no returned call. RAJAN met with beverly/Izabela at bedside with US Krystal as live truck technician. Izabela stated she can not make any decision and to help calling larry Finley and Marylu for me. >> CM met with Tushar at bedside, he stated after went for a tour at [facility] yesterday evening, he does not want pt. to go there. He decided to take pt home with HH. -- MANDY Quinn is to clarify the dc status and to give new order for HH with IV ABX accordingly.
--- NOTE | 2019-01-05 13:48 | NUR ---
RT NOTES 1348 WENT TO PT ROOM TO GIVE Q6H BREATHING TX, CHECKED/ASSESSED PT. PT BREATH SOUND EXP WHEEZE, ABOUT TO GIVE BREATHING TX FAMILY REFUSED STATED PATIENT FEELS ANXIOUS WHENEVER SHE HAS BX TX. EXPLAINED AND EDUCATE THE PATIENT WHY BX TX NEEDS TO BE GIVEN BUT FAMILY STILL REFUSED. NO SOB NOTED ON PATIENT. PT SAT 98% ON 2LNC. RN DONNIE AWARE.
--- NOTE | 2019-01-05 14:35 | NUR ---
RN Rounds pt resting in bed, no acute distress noted, pt denies any chest pain or SOB, no acute distress noted, pts family at bedside, fall and aspiration precautions in place.
[2019-01-05] MEDS ORDERED: IPRATROPIUM BROM 0.5 MG/2.5 ML VIAL.NEB (ATROVENT) INH PRN (15:15)
[2019-01-05] MEDS ORDERED: LEVALBUTEROL HCL 0.63 MG/3 ML VIAL.NEB INH PRN (15:15)
[2019-01-05] MEDS ORDERED: amLODIPine BESYLATE 5 MG TABLET PO ONE (16:15)
--- NOTE | 2019-01-05 16:27 | NUR ---
DC Planning: faxed referral inquiry to [employer] attn Tyron # [phone], tel # [phone], requested Tyron to call cm on duty in am with the arrangement. >> Informed CN , Jaison for RN Carmen that per dr. Jeronimo progress note at 2469 Plan for LTAC EVAL FOR IV ABX AND PT. CM asked Jaison to clarify the dc status with appropriate IV abx.
--- NOTE | 2019-01-05 17:10 | NUR ---
Medication pt and pts family educated on use and side effects of medication, pt and pts family verbalized understanding, tolerated medication administration well, no acute distress noted, no additional needs at this time, fall and aspiration precautions in place.
--- NOTE | 2019-01-05 18:32 | NUR ---
Refused Mercedes Catheter removal pt and pts daughter informed of orders to D/C mercedes catheter, pt and pts daughter educated on purpose and procedure for mercedes catheter removal, pt and pts daughter refusing removal of mercedes catheter.
[2019-01-05 18:44] LABS: C-REACTIVE PROTEIN QUANT 1.8 mg/dL (0-0.5)
--- NOTE | 2019-01-05 19:15 | NUR ---
OPENING NOTE Late entry due to patient care. Bedside report received from dayshift nurse. Patient received lying in bed, watching TV, family member present at bedside. Patient shows no s/s of acute distress. Breathing even and unlabored. Patient denies any pain or discomfort at this time. HOB raised, nasal canula attached properly, on 2L of oxygen. SCDs are off per patient's refusal, will continue to encourage throughout shift. IVF infusing well, IV site patent, no signs of infiltration or infection noted. Arndt attached, secured, and draining by gravity. Call light with patient. Bed is locked and at lowest position. Will continue to monitor.
--- NOTE | 2019-01-05 19:29 | NUR ---
Closing Note bedside SBAR report given to receiving RN, pt resting in bed, no acute distress noted, pts daughter at bedside, pt educated on use of call light and asked to call for assistance, pt verbalized understanding, call light in reach, bed in low and locked position, bed alarm on, fall and aspiration precautions in place, care endorsed.
--- NOTE | 2019-01-05 20:00 | NUR ---
HIGH BP Patient's BP at 155/67 with heart rate of 60 at this time. Scheduled blood pressure medication to be administered. Patient and family member expressed concern, stating BP has been trending high today. Patient and family member made aware that if it is still high after an hour Apresoline is to be administered per PRN order. Patient shows no signs of discomfort, chest rise and fall even bilaterally. Call light with patient. Will continue to monitor.
[2019-01-05] MEDS: hydrALAZINE HCL 20 MG/ML VIAL IVP PRN (21:35)
--- NOTE | 2019-01-05 21:35 | NUR ---
APRESOLINE BP reassessed, currently at 157/77, heart rate of 64. Apresoline to be administered per PRN order. Will continue to monitor and reassess the patient.
--- NOTE | 2019-01-05 23:00 | NUR ---
ROUNDS Patient in bed resting at this time. No s/s of acute distress noted. Breathing even and unlabored. BP within normal range at this time. IVF infusing well. Call light with patient. Will continue to monitor.
[2019-01-05] MEDS: LEVALBUTEROL HCL 0.63 MG/3 ML VIAL.NEB INH SCH (23:35)
[2019-01-05] MEDS: IPRATROPIUM BROM 0.5 MG/2.5 ML VIAL.NEB (ATROVENT) INH SCH (23:35)
[2019-01-06 00:49] VITALS: BP_SYST 109
--- NOTE | 2019-01-06 01:00 | NUR ---
ROUNDS Patient in bed sleeping at this time. No signs of discomfort noted. Chest rise and fall even bilaterally. IVF infusing well. Family members present at bedside. Call light with patient. Will continue to monitor.
--- NOTE | 2019-01-06 03:00 | NUR ---
ROUNDS Patient sleeping at this time. No s/s of acute distress noted. Breathing even and unlabored. IVF infusing well. Call light with patient. Will continue to monitor.
--- NOTE | 2019-01-06 05:00 | NUR ---
ROUNDS Patient sleeping at this time. No signs of discomfort noted. Chest rise and fall even bilaterally. IVF infusing well. Call light with patient. Will continue to monitor.
[2019-01-06] MEDS: OMEPRAZOLE 20 MG CAPSULE.DR (PriLOSEC) PO SCH (06:00)
[2019-01-06] MEDS: LEVOTHYROXINE SODIUM 0.05 MG TABLET PO SCH (06:00)
[2019-01-06] MEDS: NACL 0.9% 1,000 ML IV SCH (06:01)
--- NOTE | 2019-01-06 06:32 | NUR ---
CLOSING NOTES Patient in bed, awake, alert, and oriented. No s/s of acute distress noted. Patient denies any pain or discomfort. Breathing even and unlabored, HOB raised, nasal canula attached properly, on 2L of oxygen. Arndt attached, secured and draining by gravity. IVF infusing well, IV site patent, no signs of infiltration or infection noted. SCDs remain off per patient's refusal. All needs met throughout shift. Fall and safety precautions maintained throughout shift. Will continue to monitor until patient care is endorsed to oncoming dayshift nurse.
--- NOTE | 2019-01-06 07:23 | NUR ---
Opening Note received bedside SBAR report from endorsing RN, pt resting in bed, no acute distress noted, pts family at bedside, pt and pts family educated on use of call light and asked to call for assistance, pt and pts family verbalized understanding, call light in reach, pt and pts family educated on use of bed alarm for pt safety, pt and pts family refusing bed alarm, bed in low and locked position, fall and aspiration precautions in place.
[2019-01-06 07:26] LABS: ANION GAP 3 (5-15); C-REACTIVE PROTEIN QUANT 1.5 mg/dL (0-0.5); CALCIUM 9.4 mg/dL (8.4-11.0); CHLORIDE 102 mmol/L (98-107); CREATININE 0.66 mg/dL (0.55-1.30); GLUCOSE 102 mg/dL (70-99); POTASSIUM 3.8 mmol/L (3.5-5.1); SODIUM SERUM 133 mmol/L (136-145); UREA NITROGEN, BLOOD 7 mg/dL (8-21)
[2019-01-06] MEDS: LEVALBUTEROL HCL 0.63 MG/3 ML VIAL.NEB INH SCH ×3 (07:30→23:32)
[2019-01-06] MEDS: IPRATROPIUM BROM 0.5 MG/2.5 ML VIAL.NEB (ATROVENT) INH SCH ×3 (07:30→23:33)
[2019-01-06 08:00] VITALS: BP_SYST 164
[2019-01-06] MEDS: amLODIPine BESYLATE 5 MG TABLET PO SCH (08:02)
[2019-01-06] MEDS: LOSARTAN POTASSIUM 50 MG TABLET (COZAAR) PO SCH (08:03)
[2019-01-06] MEDS: ASPIRIN 81 MG TABLET(ECOTRIN) PO SCH (08:03)
[2019-01-06] MEDS: PHENAZOPYRIDINE HCL 100 MG TABLET PO SCH ×3 (08:03→17:30)
[2019-01-06] MEDS: CARVEDILOL 12.5 MG TABLET (COREG) PO SCH ×2 (08:03→21:03)
[2019-01-06] MEDS: NITROGLYCERIN 0.4 MG/HR PATCH.TD24 TD SCH (08:04)
[2019-01-06] MEDS: ENOXAPARIN SODIUM 60 MG/0.6 ML SYRINGE SUBCUT SCH ×2 (08:09→21:00)
[2019-01-06] MEDS: DICLOFENAC SODIUM 25 MG TABLET.DR PO SCH (08:09)
[2019-01-06] MEDS: BISACODYL 5 MG TABLET.DR (DULCOLAX) PO SCH (08:09)
--- NOTE | 2019-01-06 08:11 | NUR ---
Medication Refused/Refused mercedes removal pt and pts son Tushar refusing dulcolax, vistaril, voltaren, and lovenox, pt and pts son Tushar educated on blood pressure control, risk of stroke, and DVT prophylaxis, pt and pts son Tushar verbalized understanding, pt and pts son Tushar notified of orders to remove mercedes catheter, pt and pts son Tushar refusing removal of mercedes catheter.
--- NOTE | 2019-01-06 09:00 | NUR ---
DC PLANNING Called & left msg w Tyron @ [facility], ph [phone], to f/u on fax sent yest for HH for IV abx. Addendum: 01/06/19 at 1132 by Rehana Quarles RN Received call from Tyron @ [facility], states will accept pt but waiting to see if have nurse avail to see pt tomorrow. Will have all arranged to have IV abx for pt tomorrow. States will call nsg station directly once gets conformation that can accept pt to be seen tomorrow. Has direct nsg station #. Pt's nurse Cheyenne roy.
[2019-01-06 09:13] LABS: BASOPHILS % (AUTO) 0.5 % (0.0-2.0); EOSINOPHILS # (AUTO) 0.3 K/uL (0.0-0.4); EOSINOPHILS % (AUTO) 3.2 % (0.0-4.0); HEMATOCRIT 34.4 % (36-48); HEMOGLOBIN 11.7 g/dL (12.0-16.0); LYMPHOCYTES # (AUTO) 1.9 K/uL (1.0-5.5); LYMPHOCYTES % (AUTO) 23.8 % (20.5-51.5); MEAN CORPUSCULAR HEMOGLOBIN 31 pg (27-31); MEAN CORPUSCULAR HGB CONC 34 % (32-36); MEAN CORPUSCULAR VOLUME 91 fL (79.0-98.0); MONOCYTES # (AUTO) 0.6 K/uL (0.0-1.0); NEUTROPHILS # (AUTO) 5.2 K/uL (1.8-7.7); NEUTROPHILS % (AUTO) 65.5 % (40.0-70.0); PLATELET COUNT (AUTO) 333 K/uL (130-430); RED BLOOD CELL COUNT(AUTO) 3.78 MIL/uL (4.2-6.2); RED CELL DISTRIBUTION WIDTH 14.4 % (9.0-15.0)
[2019-01-06 09:54] LABS: ERYTHROCYTE SEDIMENTATION RATE 64 MM/HR (0-20)
--- NOTE | 2019-01-06 10:22 | NUR ---
MD Rounds Dr. David Jacobs at bedside speaking with pt and pts family, informed MD that pt and pts family is refusing removal of mercedes catheter, no new orders.
[2019-01-06 11:26] VITALS: BP_SYST 115
[2019-01-06] MEDS: cefTRIAXone 1 GM in D5W 50 ML IV SCH (12:00)
--- NOTE | 2019-01-06 12:03 | NUR ---
Medication pt and pts family educted on medication use and side effects, pt and pts family verbalized understanding, tolerated medication administration well, no acute distress noted, pt in bed eating lunch, family at bedside, no additional needs at this time.
--- NOTE | 2019-01-06 14:02 | NUR ---
RN Rounds pt watching TV in bed, family at bedside, pt denies any chest pain or SOB, no acute distress noted, no additional needs at this time, fall and aspiration precautions in place.
[2019-01-06 15:31] VITALS: BP_SYST 139
--- NOTE | 2019-01-06 16:25 | NUR ---
RN Rounds pt resting in bed, family at bedside, pt denies any pain, no acute distress noted, no additional needs at this time.
--- NOTE | 2019-01-06 17:32 | NUR ---
Medication pt and pts family educated on use and side effects of medication, pt and pts family verbalized understanding, pt tolerated medication administration well, no acute distress noted, pt in bed eating dinner, family at bedside.
--- NOTE | 2019-01-06 19:36 | NUR ---
Closing Note bedside SBAR report given to receiving RN, pt resting in bed, no acute distress noted, pts family at bedside, pt educated on use of call light and asked to call for assistance, pt verbalized understanding, call light in reach, pt educated on use of bed alarm for pt safety, pt refusing bed alarm, bed in low and locked position, fall and aspiration precautions in place, care endorsed.
[2019-01-06 20:00] VITALS: BP_SYST 146
--- NOTE | 2019-01-06 20:00 | NUR ---
LATE ENTRY : INITIAL NOTES: PT IS ALERT AWAKE AND ORIENTED , MACEDONIAN SPEAKING , FAMILY AT BEDSIDE , VITALS ARE STABLE ; ON ROOM AIR SAT 92% ;DENIED ANY CHEST PAIN OR SOB AT THIS TIME ; ASSESSMENT DONE ; ALL NEEDS MET ; IV FLUID IS INFUSING WELL , NO S/S OF ANY INFILTRATION NOTED ; BED IN LOW AND LOCK POSITION, CALL BEDOYA IN REACH ENCOURAGED PT TO CALL FOR ANY ASSIST . WILL CONTINUE TO MONITOR PT. FAMILY REFUSED BED ALARM
--- NOTE | 2019-01-06 21:05 | NUR ---
MEDICATION: DUE COREG GIVEN PER ORDER, SON BONNIE REFUSED TO GIVE LOVENOX , STATED PER HER PRIMARY CARE PROVIDER SHE IS ON ASPIRIN THAT IS ENOUGH . EXPLAINED THE NEED OF THE MEDICATION , STILL SON REFUSED TO GIVE . WILL NOTIFY IN AM
--- NOTE | 2019-01-06 23:05 | NUR ---
RN NOTES: NOTICED THAT WHILE SLEEPING , PTS O2 SAT IS DROPPING TO 88 , PLACED PT BACK ON O2 2L NC , SAT WENT UPTO 94% ,WILL CONTINUE TO MONITOR .ALSO RT CAME AND SAID FAMILY IS REFUSING TO GIVE BREATHING TREATMENT , PT HAS WHEEZING , EDUCATED FAMILY THE NEED FOR IT , FAMILY WANT RN TO CALL HIS SON AND GET PERMISSION ,RN CALLED BONNIE , TALKED WITH HIM AND EXPLAINED TO HIM ABOUT THE NEED OF BREATHING TREATMENT AND O2 , BONNIE ACCEPTED TO GIVE THE BREATHING TREATMENT . RT WAS AT BEDSIDE TOO .
[2019-01-07 00:39] VITALS: BP_SYST 137
--- NOTE | 2019-01-07 02:20 | NUR ---
RN ROUNDS: PT IS SLEEPING , COMFORTABLE , SON AT BEDSIDE ; NOT IN ANY ACUTE DISTRESS ; WILL CONTINUE TO MONITOR PT .
--- NOTE | 2019-01-07 04:30 | NUR ---
RN NOTES: PT IS SLEEPING , NOT IN ANY ACUTE DISTRESS; FAMILY AT BEDSIDE ; RESPIRATION IS EVEN AND NON LABORED ; WILL CONTINUE TO MONITOR PT .
[2019-01-07] MEDS: OMEPRAZOLE 20 MG CAPSULE.DR (PriLOSEC) PO SCH (05:16)
--- NOTE | 2019-01-07 06:02 | NUR ---
RN NOTES: PT IS SLEEPING COMFORTABLY , NOT IN ANY ACUTE DISTRESS; RESPIRATION IS EVEN AND NON LABORED ; O2 2L NC IN PLACE ; WILL CONITNUE TO MONITOR PT .
[2019-01-07] MEDS: LEVOTHYROXINE SODIUM 0.05 MG TABLET PO SCH (06:11)
[2019-01-07] MEDS: NACL 0.9% 1,000 ML IV SCH (06:12)
--- NOTE | 2019-01-07 06:26 | NUR ---
RN NOTES: DUE MEDICATION GIVEN , EDUCATED FAMILY THE NEED TO REMOVE THE MCARTHUR CATHETER , BONNIE SON STATED HE IS THINKING ABOUT IT .
--- NOTE | 2019-01-07 06:46 | NUR ---
CLOSING NOTES: PT IS SLEEPING , NOT IN ANY ACUTE DISTRESS; ALL NEEDS MET , FAMILY AT BEDSIDE ; MCARTHUR DRAINING WELL TO GRAVITY , FAMILY STILL THINKING ABOUT DC MCARTHUR , EDUCATED THE SON EARLIER THE IMPORTANCE OF DC ING MCARTHUR AND TRAINING BLADDER BEFORE DC. ALL NEEDS MET , PT IS ON O2 2L NC ; RESPIRATION IS EVEN AND NONLABORED ; WILL CONTINUE TO MONITOR AND WILL ENDORSE TO NEXT SHIFT NURSE .
[2019-01-07] MEDS: IPRATROPIUM BROM 0.5 MG/2.5 ML VIAL.NEB (ATROVENT) INH SCH ×2 (07:00→15:00)
[2019-01-07] MEDS: LEVALBUTEROL HCL 0.63 MG/3 ML VIAL.NEB INH SCH ×2 (07:00→15:00)
--- NOTE | 2019-01-07 07:15 | NUR ---
received report at the bedside. patient aaox 4. speaks faroese only. son chelsie at the bedside. has oxygen 4 lnc. nasal cannula. vitals signs stable. hob elevated. lungs bilaterally diminished at the bases. bed in low position. call lights within reach.
[2019-01-07 07:37] LABS: WHITE BLOOD COUNT (AUTO) 8.3 K/uL (4.8-10.8)
[2019-01-07 07:38] LABS: BASOPHILS % (AUTO) 0.5 % (0.0-2.0); EOSINOPHILS # (AUTO) 0.2 K/uL (0.0-0.4); EOSINOPHILS % (AUTO) 2.9 % (0.0-4.0); HEMATOCRIT 33.1 % (36-48); HEMOGLOBIN 11.1 g/dL (12.0-16.0); LYMPHOCYTES # (AUTO) 2.1 K/uL (1.0-5.5); LYMPHOCYTES % (AUTO) 25.8 % (20.5-51.5); MEAN CORPUSCULAR HEMOGLOBIN 31 pg (27-31); MEAN CORPUSCULAR HGB CONC 34 % (32-36); MEAN CORPUSCULAR VOLUME 92 fL (79.0-98.0); MONOCYTES # (AUTO) 0.7 K/uL (0.0-1.0); MONOCYTES % (AUTO) 8.3 % (1.7-9.3); NEUTROPHILS # (AUTO) 5.2 K/uL (1.8-7.7); NEUTROPHILS % (AUTO) 62.5 % (40.0-70.0); PLATELET COUNT (AUTO) 337 K/uL (130-430); RED BLOOD CELL COUNT(AUTO) 3.59 MIL/uL (4.2-6.2)
[2019-01-07 07:39] LABS: ALANINE AMINOTRANSFERASE 20 U/L (12-78); ALBUMIN 2.4 g/dL (3.4-4.8); ANION GAP 5 (5-15); ASPARTATE AMINOTRANSFERASE 18 U/L (10-37); C-REACTIVE PROTEIN QUANT 1.4 mg/dL (0-0.5); CALCIUM 9.1 mg/dL (8.4-11.0); CHLORIDE 101 mmol/L (98-107); GLUCOSE 97 mg/dL (70-99); POTASSIUM 3.9 mmol/L (3.5-5.1); SODIUM SERUM 134 mmol/L (136-145); TOTAL BILIRUBIN 0.4 mg/dL (0.0-1.0); UREA NITROGEN, BLOOD 9 mg/dL (8-21)
[2019-01-07 08:30] VITALS: BP_SYST 136
[2019-01-07] MEDS ORDERED: AMLO5TAB4 PO (08:52)
[2019-01-07] MEDS: NITROGLYCERIN 0.4 MG/HR PATCH.TD24 TD SCH (09:00)
[2019-01-07] MEDS: amLODIPine BESYLATE 5 MG TABLET PO SCH (09:00)
[2019-01-07] MEDS: DICLOFENAC SODIUM 25 MG TABLET.DR PO SCH (09:00)
[2019-01-07] MEDS: ENOXAPARIN SODIUM 60 MG/0.6 ML SYRINGE SUBCUT SCH (09:00)
[2019-01-07] MEDS: BISACODYL 5 MG TABLET.DR (DULCOLAX) PO SCH (09:00)
--- NOTE | 2019-01-07 09:00 | NUR ---
watching tv no sob noted. mercedes still draining yellow orange colored.
[2019-01-07] MEDS ORDERED: FUROSEMIDE 40 MG TABLET PO ONE (09:30)
--- NOTE | 2019-01-07 10:00 | NUR ---
due medication given as ordered. other medications refused md made aware.
[2019-01-07] MEDS: LOSARTAN POTASSIUM 50 MG TABLET (COZAAR) PO SCH ×2 (10:03→10:22)
[2019-01-07] MEDS: ASPIRIN 81 MG TABLET(ECOTRIN) PO SCH ×2 (10:03→10:21)
[2019-01-07] MEDS: CARVEDILOL 12.5 MG TABLET (COREG) PO SCH (10:03)
[2019-01-07] MEDS: PHENAZOPYRIDINE HCL 100 MG TABLET PO SCH ×2 (10:21→12:30)
[2019-01-07 10:28] LABS: ERYTHROCYTE SEDIMENTATION RATE 70 MM/HR (0-20)
[2019-01-07 12:18] VITALS: BP_SYST 137
[2019-01-07 12:46] VITALS: BP_SYST 136
--- NOTE | 2019-01-07 13:06 | NUR ---
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 Coli, acute pyelonephritis, obesity, VICKI Subjective Information Pt seen resting in bed w/ multiple family members at bedside. Family reported of good appetite. Son at bedside interpreted during this conversation. Pt denied any abd discomfort, and denied any N/V. Son requested for education while doing follow up visit. RD provided nutrition education 01/07/19, please check Interdisciplinary Teaching Record for details. Per EMR, abd is soft and non-distended w/ active bowel sounds. I/O: 1740/1300 +440ml, IV total intake 240ml per 12 hrs. PO intake 70% of 3 meals 01/06/19. Last BM 01/07/19. Family/Son denied that pt has ever been diagnosed w/ DM in the past as recorded in ER MD documents. Bed scale wt 214 lb 01/07/19. Current Diet Order/Nutrition Support Cardiac x10 days Patient/Significant Other Able To Verbalize Education Provided Not Indicated Pertinent Medications dulcolax, lovenox, synthroid, NaCl IV Pertinent Labs ALP 139H, Na 134 L, H/H 11.1L/33.1L Phosphorous 2.6 L (12/31/18) Height (Feet) 5 feet Height (Inches) 0.00 inches Weight (Pounds) 213 pounds (01/06/19) Weight (Calculated Kilograms) 96.785 kilograms Patient Weight 96.785 kg Body Mass Index 41.7 kg/m2 Usual Weight 220 lbs %UBW 97 %IBW 209 [place]/Adjusted Body Weight IBW 100 lbs, 45 kg ABW 128 lbs, 58 kg Recent Weight Change Yes - Per son, pt has gained wt in past 6 months; unable to verify amount Weight Status Morbidly Obese Gastrointestinal Symptoms Nausea Last BM 01/01/19 Food Allergies No Usual Diet At Home Regular Skin Integrity Comment: Ever Score: 18 Per RN note, abd w/ ecchymosis, L chest w/ dry scab, lower sacrum w/ erythema. non-pitting edema to bilateral ankle, and generalized non-pitting edema. Current % PO Fair (70%) Estimated Energy Expenditure (kcals/day) 3732-2369 kcal/day (25-30 kcal/kg ABW for geriatric maintenance) Estimated Protein Required (g/day) 58-70 g/day (1-1.2 g/kg ABW for geriatric maintenance) Estimated Fluid Required (l/day) Per MD d/t hyponatremia Problem/Etiology/Signs/Symptoms Malnutrition R/T morbid obesity AEB 216 lbs CBW, 209% IBW, and BMI 41. *ongoing Expected Outcomes/Goals -Monitor pt appetite and PO intake w/ goal of pt meeting at least 85% of estimated nutritional needs, labs trending WNL, skin integrity/wt maintenance. Dietitian Recommendations *Recommend continuing cardiac diet per MD Follow Up Mod Risk: F/U in 3-5 days
--- NOTE | 2019-01-07 13:14 | NUR ---
Dietitian Recommendations *Recommend continuing cardiac diet per MD Heart Healthy Nutrition Therapy and Weight loss tips nutrition education was provided 01/07/19. Please see Nutrition F/U note for details. VIVEK, RD
--- NOTE | 2019-01-07 13:49 | NUR ---
DC Planning: spoke with pt's larry/Tushar, pt.is to d/c with [facility] # [phone]/Tyron to arrange the visiting time. Tushar stated he work as EMT, informed me that he is arranging a nonmedical van transport for the pt. Addendum: 01/07/19 at 1356 by Erin Pizano RN continue: This due to he does not have a w/c van and pt. will need the total assist to get in and out his car. offered to find the transportation for him, but he declined. He would arrange for the ride himself.
--- NOTE | 2019-01-07 15:29 | NUR ---
patient is stable. son at the bedside and other family member. verbalized wants to have the mercedes catheter on. explained needs to be removed before going home.
--- NOTE | 2019-01-07 15:30 | NUR ---
awaiting for the wheelchair ambulance as per requested by the son.
--- NOTE | 2019-01-07 15:48 | NUR ---
patient will go home with iv access for iv antibiotic of rocephin 1 gm iv till 01/11/19 as per md order
--- NOTE | 2019-01-07 16:25 | NUR ---
patient scdh i d band removed. left via her own wheelchair. still has with iv access on the left hand #20. dry and intact. mercedes catheter removed and draining yellow orange colored about 600cc. as per request of the son. discharge instructions given to the son. including the prescription x 2. accompany to the lobby with the family. patient left in stable condition. o2 Sat without oxygen 95% no sob noted.
[2019-01-07 16:27] VITALS: BP_SYST 141
--- NOTE | 2019-01-10 10:44 | NUR ---
DISCHARGE FOLLOW UP PHONE CALL: BELT SANDER phoned pt @ [phone] and spoke with dtr Beena. Beena reports pt is resting but her "cough is worse". Beena reports pt has an appointment with Account Representative today in the PM with Dr. Marks and will bring up her concerns about pt's cough. Beena reports pt was able to fill new prescription except for the Dulcolax, but pharmacy will be contacting MD office. Beena reports pt's HH and IV abx started yesterday 01/09. BELT SANDER encouraged family to bring pt to ED if needing medical attention; dtr agreed. No questions/concerns about discharge instructions and medication instructions but will call SS if any arise. No further SS call needed at this time.
== END 2019-01-07 16:24 | disposition home health service (06) | DRG 720 ==
LOC: SED 18:01 → STU 22:08 → SIC 12-28 09:39 → STU 12-29 18:07
PROVIDERS: ADMIT Preventive Medicine Preventive Medicine/Occupational Environmental Medicine; ATTEND Preventive Medicine Preventive Medicine/Occupational Environmental Medicine
DX: A41.50 Gram-negative sepsis, unspecified (principal); I21.4 Non-ST elevation (NSTEMI) myocardial infarction; E43 Unspecified severe protein-calorie malnutrition; J96.00 Acute respiratory failure, unspecified whether with hypoxia or hypercapnia; N17.0 Acute kidney failure with tubular necrosis; R65.21 Severe sepsis with septic shock; G93.40 Encephalopathy, unspecified; J18.9 Pneumonia, unspecified organism; E11.65 Type 2 diabetes mellitus with hyperglycemia; N13.6 Pyonephrosis; E83.39 Other disorders of phosphorus metabolism; E87.8 Other disorders of electrolyte and fluid balance, not elsewhere classified; I11.0 Hypertensive heart disease with heart failure; I50.9 Heart failure, unspecified; E87.1 Hypo-osmolality and hyponatremia; B96.20 Unspecified Escherichia coli [E. coli] as the cause of diseases classified elsewhere; D64.9 Anemia, unspecified; E03.9 Hypothyroidism, unspecified; E66.9 Obesity, unspecified; E78.5 Hyperlipidemia, unspecified; E83.52 Hypercalcemia; J98.01 Acute bronchospasm; E86.1 Hypovolemia; F32.9 Major depressive disorder, single episode, unspecified; I25.10 Atherosclerotic heart disease of native coronary artery without angina pectoris; M19.90 Unspecified osteoarthritis, unspecified site; K21.9 Gastro-esophageal reflux disease without esophagitis; Z86.73 Personal history of transient ischemic attack (TIA), and cerebral infarction without residual deficits; Z68.41 Body mass index [BMI] 40.0-44.9, adult
CPT/HCPCS: 36415; 71045; 80048; 80053; 80061; 81000-TC; 82570-TC; 83605; 83615-TC; 83735-TC; 83880; 83930-TC; 83935-TC; 84100-TC; 84156; 84302-TC; 84484; 85025; 85610-TC; 85651-TC; 85730-TC; 86140; 87040-TC; 87081; 87086; 87186-TC; 93005; 93306; 94640; 94760; 96361; 96365; 96372; 96375; 97110-GP; 97530-GP; 99285; G0378; J0360; J0696; J1650; J1940; J1956; J2405; J2543; J7030; J7050; J7060; J7612; J7614; J7620; P9046